=== PATIENT | female | born 1960 | race Caucasian/White ===

== ENCOUNTER 2017-02-14 22:57 | Observation (INO) ==
[2017-02-14] MEDS ORDERED: Metoclopramide 10 MG/2 ML VIAL IVP ONE (23:06)
--- NOTE | 2017-02-14 23:08 | Emergency Department Note ---
Disposition Clinical Impression: Hypoxia, Elevated d-dimer, ADALBERTO (acute kidney injury) Headache Qualifiers: Headache type: unspecified Headache chronicity pattern: acute headache Intractability: not intractable Qualified Code(s): R51 - Headache Disposition: Admitted As Inpatient Condition: Good Instructions: Acute Headache (ED) Referrals: NO,PCP [Non-Partnered Physician] - Forms: ED Satisfaction Letter Time of Disposition: 02:25 Headache HPI - General Chief Complaint: ED Headache Stated Complaint: headache Time Seen by Provider: 02/14/17 23:03 Source: patient Mode of arrival: ambulatory Limitations: no limitations Nursing Notes Reviewed: Yes Vital Signs Reviewed: Yes - History of Present Illness HPI Narrative: Patient is a 56-year-old female with hypertension, diabetes, hypothyroid. She presents today due to headache. Patient states that she was seen at the [facility] urgent care today and had an injection of Toradol and injection of steroids for right carpal tunnel. This evening, around 9 PM approximately 2 hours prior to arrival, patient began having a frontal headache, it was sudden in onset, she also had some vertigo. She is still having vertigo and frontal headache, denies any numbness, tingling, weakness. Denies any chest pain, shortness breath, nausea, vomiting, fevers, diarrhea. Denies any history of headaches. - Related Data Home Medications Medication Instructions Recorded Confirmed Clonazepam 09/26/16 Gabapentin 09/26/16 HumuLIN N 09/26/16 Lisinopril 09/26/16 Metformin 09/26/16 Synthroid 09/26/16 09/26/16 Previous Rx's Medication Instructions Recorded Diclofenac Potassium 50 mg PO TID PRN #20 tablet 09/26/16 Fluticasone Propionate Nasal 50 mcg NS DAILY #1 bottle 01/12/17 [Flonase] Insulin Glargine [Lantus] 15 unit SQ HS 30 Days 01/12/17 Insulin LISPRO [HumaLOG] 10 units SQ TIDWM #90 vial 01/12/17 Azithromycin [Zithromax] 1 applic PO DAILY #6 tablet 02/03/17 Benzonatate [Tessalon] 200 mg PO TID PRN #30 capsule 02/03/17 Allergies Allergy/AdvReac Type Severity Reaction Status Date / Time ampicillin Allergy See Verified 11/01/16 15:23 Comments Erythromycin Base Allergy Hives Verified 11/01/16 15:23 [From Erythrocin] Penicillins [PCN] Allergy See Verified 11/01/16 15:23 Comments Tetracycline Allergy Hives Verified 11/01/16 15:23 All systems ED: reviewed and negative except as stated. Constitutional: Denies: fever Eyes: Denies: vision change Cardiovascular: Denies: chest pain, palpitations Respiratory: Denies: cough, dyspnea, wheezes Gastrointestinal: Denies: abdominal pain, nausea, vomiting, diarrhea Genitourinary: Denies: urgency Integumentary: Denies: rash Neurological: Reports: headache, vertigo. Denies: weakness, numbness, paresthesias Headache PMH - Past Medical History Medical history: Reports: diabetes, hypertension, thyroid disease Psychiatric history: Reports: no psych history - Social History Smoking Status: Current every day smoker Alcohol use: Reports: unknown Drug use: Reports: none Physical Exam - General Limitations: no limitations General appearance: alert, in no apparent distress - Head Head exam: atraumatic, normocephalic, normal inspection - Eye Eye exam: Present: normal appearance, PERRL, EOMI - ENT ENT exam: normal exam, normal oropharynx, mucous membranes moist - Neck Neck exam: Present: normal inspection, full ROM, trachea midline. Absent: tenderness - Respiratory Respiratory exam: Present: normal lung sounds bilaterally - Cardiovascular Cardiovascular exam: Present: regular rate, normal rhythm, normal heart sounds - Abdominal Exam Abdominal exam: Present: soft, Non-Tender. Absent: tenderness, distention, guarding, rebound, rigidity - Extremities Exam Extremities exam: Present: normal inspection, full ROM. Absent: tenderness, pedal edema - Neurological Exam Neurological exam: Present: alert, oriented X3, CN II-XII intact. Absent: motor sensory deficit - Psychiatric Psychiatric exam: Present: normal affect, normal mood - Skin Skin exam: Present: warm, dry, intact, normal color Course Course Narrative: Vitals within normal limits. Physical exam showed no focal neurologic deficits. No neck tenderness or meningeal signs. The rest of the physical exam is benign. CT of the head showed no acute intracranial process and pansinusitis. Patient was given Reglan and meclizine for vertigo and nausea. Patient was concerned today that maybe she had an allergic reaction to Toradol. She has no lip swelling, throat swelling, shortness of breath or difficulty swallowing. 00:36 patient is only 91% on 2L NC. Will obtain CXR, EKG, trop, d-dimer, BMP for further assessment. Mild dyspnea but no chest pain at this time. 02:22 . Patient chest x-ray was negative for any acute process. Troponin negative. D-dimer was elevated. BMP showed elevated creatinine and a GFR of 46. Due to poor GFR, CTA cannot be completed. A V/Q scan cannot be obtained at this time, I discussed starting a heparin drip with the patient and then admitting her and having a VQ scan done in the morning due to concern of possible PE. She was agreeable with this plan. Head CT 02/14/17 23:04 IMPRESSION: No acute intracranial abnormality. Pansinusitis. D/ / Arabella Laguna MD / Arabella Laguna MD Interpreting Provider: Araeblla Laguna MD Chest X-Ray 02/15/17 00:31 IMPRESSION: No acute process. D/ / Sebastián Avitia MD / Sebastián Avitia MD Interpreting Provider: Sebastián Avitia MD Head CT 02/14/17 23:04 IMPRESSION: No acute intracranial abnormality. Pansinusitis. D/ / Arabella Laguna MD / Arabella Laguna MD Interpreting Provider: Arabella Laguna MD Vital Signs Temperature 98.0 F 02/14/17 23:02 Pulse Rate 88 02/14/17 23:02 Respiratory Rate 16 02/14/17 23:02 Blood Pressure 127/82 02/14/17 23:02 O2 Sat by Pulse Oximetry 96 02/14/17 23:02 Temperature 98.0 F 02/14/17 23:02 Pulse Rate 87 02/15/17 00:04 Respiratory Rate 18 02/15/17 00:04 Blood Pressure 136/81 02/15/17 00:04 O2 Sat by Pulse Oximetry 96 02/15/17 00:07 Oxygen Delivery Oxygen Delivery Room Air Headache - MDM Narrative Medical decision making narrative: Vitals within normal limits. Physical exam showed no focal neurologic deficits. No neck tenderness or meningeal signs. The rest of the physical exam is benign. CT of the head showed no acute intracranial process and pansinusitis. Patient was given Reglan and meclizine for vertigo and nausea. Patient was concerned today that maybe she had an allergic reaction to Toradol. She has no lip swelling, throat swelling, shortness of breath or difficulty swallowing. 00:36 patient is only 91% on 2L NC. Will obtain CXR, EKG, trop, d-dimer, BMP for further assessment. Mild dyspnea but no chest pain at this time. 02:22 . Patient chest x-ray was negative for any acute process. Troponin negative. D-dimer was elevated. BMP showed elevated creatinine and a GFR of 46. Due to poor GFR, CTA cannot be completed. A V/Q scan cannot be obtained at this time, I discussed starting a heparin drip with the patient and then admitting her and having a VQ scan done in the morning due to concern of possible PE. She was agreeable with this plan. - Medical Records Medical records reviewed: Yes I reviewed the patient's medical records. - Lab Data Lab results reviewed: Yes I reviewed the patient's lab results. Result diagrams: 02/15/17 00:57 Lab Results 02/15/17 02/15/17 02/15/17 Range/Units 00:57 00:57 00:57 D-Dimer 680 H (0-500) ng/mLFEU Sodium 136 (136-145) mEq/L Potassium 4.8 H (3.5-4.5) mEq/L Chloride 102 (98-109) mEq/L Carbon Dioxide 24 (19-29) mEq/L BUN 21 H (7-20) mg/dL Creatinine 1.22 H (0.57-1.11) mg/dL Est GFR ( Amer) 56 L (> 60) Est GFR (Non-Af Amer) 46 L (> 60) BUN/Creatinine Ratio 17 (6-26) Glucose 348 H (70-99) mg/dL Calculated Osmolality 299 (280-300) Calcium 10.2 (8.6-10.8) mg/dL Troponin I 0.01 (0-0.03) ng/mL - Radiology Data Radiology results reviewed: Yes I reviewed the patient's radiology results. Head CT 02/14/17 23:04 IMPRESSION: No acute intracranial abnormality. Pansinusitis. D/ / Arabella Laguna MD / Arabella Laguna MD Interpreting Provider: Arabella Laguna MD - EKG Data EKG attestation: Yes I reviewed and interpreted this EKG. EKG results narrative: 02/15/2017 at 00:51. Normal sinus rhythm. Rate 90. GA 187. QRS 82. QTC 399. Normal axis. No acute ST elevation or depression. T-wave inversion in lead 3 that is chronic for the patient from previous EKG on 01/12/2017 [facility] [place] Situation: Demographics, MOA Background: Presenting Complaint, Relevant PMH, Meds, & Allergies Assessment: Vital Signs, Course and respsone to treatment, Exam Concerns, Patient/Family Expectation, Pertinant Lab Results, Outstanding Labs Recommendation: Barrier(s) to disposition, Recommendation based on pending studies, treatments, or consults [facility] Report Given to: Dr. Beatriz Jacob Repor Time: 02:25 Attestation Statement - Attestation Attestation: I examined this patient and my medical decision-making was reviewed with the LUMBER SORTER/PA/Advanced Practice Nurse/Resident Physician. I agree with the documented findings, disposition and treatment plan as described except to the extent set forth below. Patient to the emergency department with a chief complaint of headache. Sudden onset. Patient states this started after she was at the urgent care for her carpal tunnel and got an injection of Toradol and a steroid. On examination she does not appear to be in any distress. Neurologically intact. No nystagmus. Plan. Patient is to use some feeling of off balance. We will give her some meclizine. Reglan Benadryl. Reevaluate. Head CT as well. CT unremarkable patient feeling better. She is persistently hypoxic. She had a cardiac workup with a positive d-dimer. Acute renal insufficiency secondary to CT scan. We will start on Heparin and admit for VQ.
[2017-02-15 01:17] LABS: Calcium 10.2 mg/dL (8.6-10.8); Potassium 4.8 mEq/L (3.5-4.5)
[2017-02-15] MEDS ORDERED: *HR* Heparin 5,000 UNIT/ML VIAL IVP ONE (02:16)
[2017-02-15] MEDS ORDERED: *HR* Heparin 5,000 UNIT/ML VIAL IVP PRN ×2 (02:16)
[2017-02-15] MEDS ORDERED: Heparin 25,000 UNIT/500 ML D5W 25,000 UNIT/500 ML MLS IVC SCH (02:30)
[2017-02-15] MEDS ORDERED: Acetaminophen 325 MG TABLET PO PRN (02:40)
[2017-02-15] MEDS ORDERED: *HR* Morphine 2 MG/ML SYRINGE IVP PRN (02:40)
[2017-02-15] MEDS ORDERED: Ondansetron 4 MG/2 ML VIAL IVP PRN (02:40)
[2017-02-15] MEDS ORDERED: Naloxone 0.4 MG/ML INJ IVP PRN (02:40)
[2017-02-15] MEDS ORDERED: Ipratropium/Albuterol Neb 3 ML IH PRN (02:42)
[2017-02-15] MEDS ORDERED: 0.9 % Sodium Chloride 1,000 ML IVC SCH (02:45)
--- NOTE | 2017-02-15 02:46 | Internal Med History&Physical ---
Date of Encounter: 02/15/17 Time of Encounter: 02:43 Assessment and Plan (1) Hypoxia Current visit: Yes Status: Acute With elevated d-dimer and tachycardia, consider possible pulmonary emboli Ordered a VQ scan, may discontinue heparin drip if the VQ scan is negative for pulmonary emboli Omeprazole for GI prophylaxis and heparin drip for DVT for prophylaxis. Admitted for observation. Full code. Time spent on this admission 40 minutes. High risk due to hypoxia (2) Elevated d-dimer Current visit: Yes Status: Acute (3) Hypertension Current visit: Yes Status: Acute Stable May use hydralazine IV as needed Qualifiers: Hypertension type: essential hypertension Qualified Code(s): I10 - Essential (primary) hypertension (4) ADALBERTO (acute kidney injury) Current visit: Yes Status: Acute Acute renal failure, possible dehydration Continue IV fluids (5) Headache Current visit: Yes Status: Acute Possibly secondary to pansinusitis likely viral Qualifiers: Headache type: unspecified Headache chronicity pattern: acute headache Intractability: not intractable Qualified Code(s): R51 - Headache (6) Diabetes Current visit: Yes Status: Acute Continue with insulin sliding scale Qualifiers: Diabetes mellitus type: type 2 Diabetes mellitus complication status: without complication Diabetes mellitus joint terminal attack controller insulin use: with joint terminal attack controller use Qualified Code(s): E11.9 - Type 2 diabetes mellitus without complications ; Z79.4 - nursing home (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 of insulin Internal Medicine - H&P: HPI Chief complaint: headache Admitted From: Emergency Dept History of present illness: Ms. Mahoney is a 56 year old female with a past medical history of DM2 insulin dep , Tobacco use who does not use oxygen at home, initially the patient came complaining of headache that started at 9 PM last night accompanied by vertigo. Yesterday patient went to an urgent care facility complaining of right carpal tunnel pain and received Toradol. At the emergency room she was noticed to be requiring oxygen on 3 L and saturating only 90%, she felt mildly short of breath. During my examination her heart rate was 101, her creatinine has increased from 0.87 up to 1.22, her d-dimer was [address] angiography of the chest was not able to be performed. The patient agreed to stay until the VQ scan would be ordered. CT scan of the head does not show any intracranial hemorrhage and shows pansinusitis. Chest x-ray is unremarkable. Glucose is 348. Denies any sick contacts or fevers Past Med Surg Social Fam HX - Past Medical History Medical history: diabetes (Insulin-dependent), hypertension, thyroid disease ( Hypothyroidism), other (Neuropathy, tobacco use, anxiety) Psychiatric history: no psych history - Past Surgical History Surgical History: other (C-sections, tubal pregnancies, hysterectomy and possible appendectomy, and past the patient was told that they took her appendix out during her hysterectomy) - Social History Smoking Status: Current every day smoker Packs per day: One pack per day Smokeless Tobacco Status: No Alcohol use: none Drug use: none - Additional Family History Additional family history: Mother and father with diabetes Internal Medicine - H&P: Meds Clonazepam 09/26/16 [History] Diclofenac Potassium 50 mg PO TID PRN #20 tablet 09/26/16 [Rx] Gabapentin 09/26/16 [History] HumuLIN N 09/26/16 [History] Lisinopril 09/26/16 [History] Metformin 09/26/16 [History] Synthroid 09/26/16 [History] Fluticasone Propionate Nasal [Flonase] 50 mcg NS DAILY #1 bottle 01/12/17 [Rx] Insulin Glargine [Lantus] 15 unit SQ HS 30 Days 01/12/17 [Rx] Insulin LISPRO [HumaLOG] 10 units SQ TIDWM #90 vial 01/12/17 [Rx] Azithromycin [Zithromax] 1 applic PO DAILY #6 tablet 02/03/17 [Rx] Benzonatate [Tessalon] 200 mg PO TID PRN #30 capsule 02/03/17 [Rx] Allergies ampicillin Allergy (Verified 11/01/16 15:23) See Comments Allergy test results Erythromycin Base [From Erythrocin] Allergy (Verified 11/01/16 15:23) Hives Penicillins [PCN] Allergy (Verified 11/01/16 15:23) See Comments Allergy test results Tetracycline Allergy (Verified 11/01/16 15:23) Hives All Systems PM: A 10-system review of systems was performed and is negative for pertinent findings except as documented above in the HPI. Review of systems: Denies any chest pain, no abdominal pain, no dysuria. Other systems out of the 10 reviewed were negative - Constitutional Vitals: Temp Pulse Resp BP Pulse Ox 98.0 F 87 18 136/81 96 02/14/17 23:02 02/15/17 00:04 02/15/17 00:04 02/15/17 00:04 02/15/17 00:07 General appearance: Present: A&O X 3 - Head Head exam: Present: atraumatic, normocephalic - Eye Eye exam: Present: PERRL, conjuntiva pink, sclera anicteric Pupils: Present: PERRL - Neck Neck exam general surgery: Present: supple, trachea midline. Absent: lymphadenopathy - Respiratory Respiratory exam: Present: decreased breath sounds, CTAB. Absent: accessory muscle use, rales, rhonchi, wheezes - Cardiovascular Cardiovascular exam: Present: RRR, +S1, +S2, tachycardia (101 bpm during my examination). Absent: diastolic murmur, gallop, rubs, systolic murmur - GI/Abdominal GI/Abdominal exam: Present: normal bowel sounds, soft, no peritoneal signs. Absent: distended, tenderness - Extremities Exam Extremities exam: Present: warm, radial pulses palpable and symetrical. Absent : calf tenderness, cyanotic, pedal edema - Neurological Exam Neurological exam: Present: CN II-XII intact, oriented X3, no focal deficits. Absent: pronater drift, facial droop, speech deficit - Skin Skin exam: Present: dry, intact Internal Med - H&P Results - Labs CBC & Chem 7: 02/15/17 00:57
[2017-02-15] MEDS ORDERED: Dextrose Gel 15 GM PO PRN ×2 (02:53)
[2017-02-15] MEDS ORDERED: *HR* Dextrose 50 % in Water (Syg) 50 ML SYRINGE IVP PRN (02:53)
[2017-02-15] MEDS ORDERED: D5% in Water 1,000 ML IVC PRN (02:53)
[2017-02-15] MEDS ORDERED: Insulin LISPRO 300 UNITS/3 ML VIAL SQ SCH (03:00)
[2017-02-15 03:01] LABS: Basophils % 0.2 %; Eosinophils % 0.2 %; Hematocrit 41.7 % (35.3-44.9); Hemoglobin 13.9 g/dL (11.5-15.4); Immature Granulocytes % 0.5 % (0-4); Lymphocytes # 0.3 K/mcL (0.6-4.6); Lymphocytes % 7.2 %; Mean Corpuscular HGB Conc 33.3 g/dL (31.6-35.5); Mean Corpuscular Hemoglobin 32.4 pg (28.0-33.3); Mean Corpuscular Volume 97.2 fL (83.0-100.0); Mean Platelet Volume 10.3 fL (9.4-12.4); Monocytes % 0.7 %; Neutrophils # 3.7 K/mcL (1.6-8.9); Platelet Count 155 K/mcL (140-400); Red Blood Count 4.29 M/mcL (3.82-4.97); Red Cell Distribution Width 12.7 % (11.5-14.5); Segmented Neutrophils % 91.2 %
[2017-02-15 03:15] LABS: INR 1.1; Prothrombin Time 11.4 Seconds (9.4-12.1)
[2017-02-15 03:17] LABS: Activated Partial Thrombo Time 32.5 Seconds (26.0-36.0)
[2017-02-15] MEDS: Insulin LISPRO 300 UNITS/3 ML VIAL SQ SCH ×3 (05:55→12:05)
[2017-02-15] MEDS ORDERED: Nicotine 21 MG PATCH.TD24 TD SCH (09:00)
[2017-02-15 10:02] LABS: Hematocrit 39.2 % (35.3-44.9); Immature Granulocytes % 0.7 % (0-4); Lymphocytes # 0.4 K/mcL (0.6-4.6); Lymphocytes % 7.5 %; Mean Corpuscular HGB Conc 33.2 g/dL (31.6-35.5); Mean Corpuscular Hemoglobin 31.3 pg (28.0-33.3); Mean Corpuscular Volume 94.5 fL (83.0-100.0); Mean Platelet Volume 10.2 fL (9.4-12.4); Monocytes # 0.1 K/mcL (0.0-1.3); Monocytes % 2.1 %; Neutrophils # 5.2 K/mcL (1.6-8.9); Platelet Count 150 K/mcL (140-400); Red Blood Count 4.15 M/mcL (3.82-4.97); Red Cell Distribution Width 12.3 % (11.5-14.5); Segmented Neutrophils % 89.7 %
[2017-02-15 10:21] LABS: BUN/Creatinine Ratio 24 (6-26); Blood Urea Nitrogen 25 mg/dL (7-20); Calcium 9.8 mg/dL (8.6-10.8); Carbon Dioxide 24 mEq/L (19-29); Chloride 104 mEq/L (98-109); Glucose 304 mg/dL (70-99); Osmolality,Calculated 298 (280-300); Potassium 4.7 mEq/L (3.5-4.5); Sodium 136 mEq/L (136-145); eGFR For African Americans > 60 (> 60); eGFR For Non-African Americans 54 (> 60)
[2017-02-15 11:24] VITALS: BP 126/78
--- NOTE | 2017-02-15 14:43 | Discharge Summary ---
Date of Encounter: 02/15/17 Time of Encounter: 14:00 - Discharge Diagnosis (1) Headache Priority: Primary Status: Resolved Comments: Patient denied headache or vertigo throughout this admission. She had an outbreak and steady gait. Head CT negative. She is able to tolerate a regular diet. Qualifiers: Headache type: unspecified Headache chronicity pattern: acute headache Intractability: not intractable Qualified Code(s): R51 - Headache (2) Acute pansinusitis Priority: Primary Status: Acute (3) Elevated d-dimer Priority: Primary Status: Ruled-out Comments: VQ scan low probability for PE (4) ADALBERTO (acute kidney injury) Priority: Primary Status: Resolved Comments: Nearly resolved while admitted. Follow-up outpatient. (5) Diabetes Priority: Secondary Status: Chronic Comments: Relatively well controlled with an A1c of 7.4% in November of this year. Follow -up outpatient. Qualifiers: Diabetes mellitus type: type 2 Diabetes mellitus complication status: without complication Diabetes mellitus urology surgeon insulin use: with senior living use Qualified Code(s): E11.9 - Type 2 diabetes mellitus without complications ; Z79.4 - retirement (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 of insulin (6) Hypertension Priority: Secondary Status: Chronic Comments: Controlled. Her HEMANT inhibitor was held during this admission secondary to acute kidney injury, safe to resume upon discharge. Qualifiers: Hypertension type: essential hypertension Qualified Code(s): I10 - Essential (primary) hypertension - Discharge Medications Home Medications: Gabapentin [Neurontin] 600 mg PO TID 09/26/16 [History] Levothyroxine Sodium [Levo-T] 200 mcg PO DAILY 09/26/16 [History] Lisinopril [Zestril] 5 mg PO DAILY 09/26/16 [History] Metformin [Glucophage] 850 mg PO DAILY 09/26/16 [History] Insulin LISPRO [HumaLOG] 10 units SQ TIDWM #90 vial 01/12/17 [Rx] Atorvastatin [Lipitor] 40 mg PO HS 02/15/17 [History] Dulaglutide [Trulicity] 1.5 mg SQ QWEEK 02/15/17 [History] Famotidine [Heartburn Prevention] 20 mg PO HS 02/15/17 [History] Insulin Glargine,Hum.rec.anlog [Tracey Alas] 21 unit SQ HS 02/15/17 [History ] Ropinirole HCl [Requip] 0.5 mg PO HS 02/15/17 [History] Allergies/Adverse Reactions: Allergies ampicillin Allergy (Verified 11/01/16 15:23) See Comments Allergy test results Erythromycin Base [From Erythrocin] Allergy (Verified 11/01/16 15:23) Hives Penicillins [PCN] Allergy (Verified 11/01/16 15:23) See Comments Allergy test results Tetracycline Allergy (Verified 11/01/16 15:23) Hives Procedures/tests Complete & Pending: Procedures Performed prior 72 hours Category Date Time Status VQ Scan [NM pul vent and perfuse] [NM] Routine Exams 02/15/17 02:39 Completed Date of admission: 02/15/17 02:36 Primary care physician: Jagruti Romero DO Discharging clinician: Holli Ferreira Anticipated date of discharge: 02/15/17 - Patient Status Disposition: Home, Self-Care Condition: Good Functional capacity at discharge: independent ambulation Overall status at discharge: patient is back to baseline - Discharge Instructions Follow Up With: Jagruti Romero DO [Primary Care Provider] - Additional Instructions: Follow-up with primary care provider within 2-3 weeks - Diet and Activity Activity: increase activity as tolerated Diet: diabetic diet, low salt diet Hospital course: Ms. Mahoney is a 56 year old female with past medical history of diabetes, hypertension, hypothyroidism, tobacco abuse. Patient presented to the emergency department chief complaint headache that started on the night prior to presentation was accompanied by vertigo. Patient states she was seen in urgent care on the day prior to presentation can tell complaining of right carpal tunnel pain and received Toradol. While in the emergency department, she was noted to be requiring 3 L and was only saturating 90% and she also felt mildly short of breath. She does not use oxygen at home. Patient also had acute kidney injury and an elevated d-dimer. Patient was admitted to the hospitalist service for further evaluation and management. VQ scan ruled out a PE. Patient was asymptomatic throughout this admission and was able to tolerate a regular diet. Head CT negative for acute processes other than pansinusitis. Chest x-ray negative. Patient had an upright and steady gait throughout this admission and denied any vision changes. Her acute kidney injury nearly resolved and her HEMANT inhibitor was continued. Likely cause of her symptoms was dehydration which resolved. She was discharged home in stable condition with close outpatient follow-up recommended. ITS Impressions Head CT 02/14/17 23:04 IMPRESSION: No acute intracranial abnormality. Pansinusitis. D/ / Arabella Laguna MD / Arabella Laguna MD Interpreting Provider: Arabella Laguna MD Chest X-Ray 02/15/17 00:31 IMPRESSION: No acute process. D/ / Sebastián Avitia MD / Sebastián Avitia MD Interpreting Provider: Sebastián vAitia MD Pulmonary Perfusion Imaging 02/15/17 02:39 IMPRESSION: Low Probability for Pulmonary Embolus. D/ / 02/15/2017 13:04:27 Kwesi Arevalo MD / Shilpa Galo Interpreting Provider: Kwesi Arevalo MD - Time Spent with Patient Total time spent providing and/or coordinating discharge services: - Constitutional Vitals: Temp Pulse Resp BP Pulse Ox 97.7 F 73 20 126/78 94 02/15/17 11:19 02/15/17 11:19 02/15/17 11:19 02/15/17 11:19 02/15/17 11:19 General appearance: Present: A&O X 3, pleasant, no acute distress, answers questions appropriately - Head Head exam: Present: atraumatic, normocephalic - Eye Eye exam: Present: PERRL, conjuntiva pink, sclera anicteric Pupils: Present: PERRL - Neck Neck exam general surgery: Present: supple, trachea midline. Absent: lymphadenopathy - Respiratory Respiratory exam: Present: decreased breath sounds. Absent: accessory muscle use, rales, respiratory distress, rhonchi, wheezes - Cardiovascular Cardiovascular exam: Present: RRR, +S1, +S2. Absent: diastolic murmur, gallop, rubs, systolic murmur - GI/Abdominal GI/Abdominal exam: Present: normal bowel sounds, soft, no peritoneal signs. Absent: distended, tenderness - Extremities Exam Extremities exam: Present: warm, radial pulses palpable and symetrical. Absent : calf tenderness, cyanotic, pedal edema - Neurological Exam Neurological exam: Present: alert, CN II-XII intact, normal gait, oriented X3, no focal deficits, strengths equal and symetr throughout. Absent: pronater drift, facial droop, speech deficit - Skin Skin exam: Present: dry, intact, normal color, warm
--- NOTE | 2017-02-16 20:13 | Electrocardiograph Report ---
[place] [id number] Test Date: 2017-02-15 Pat Name: Lela Mahoney Department: 102 Room: 3B Gender: F Client Liaison: Roque : 1960 Requested By: Dakotah Mazariegos Order Number: [id number] Reading MD: Khai Ramirez MD Measurements Intervals [place] Rate: 90 P: 28 KS: 187 QRS: -1 QRSD: 82 T: 13 QT: 352 QTc: 399 Interpretive Statements SINUS RHYTHM LOW QRS VOLTAGE IN PRECORDIAL LEADS Poor R wave progression Electronically Signed On 02-16-2017 20:11:23 EDT by Khai Ramirez MD
== END 2017-02-15 16:10 | disposition home or self-care (01) ==
LOC: EMEROO 22:57 → 3BNU 22:57
PROVIDERS: ADMIT Internal Medicine; ATTEND Nurse Practitioner Family

== ENCOUNTER 2018-07-29 20:55 | Observation (INO) ==
[2018-07-29] MEDS: 0.9 % Sodium Chloride 1,000 ML IVC SCH ×2 (21:15→22:23)
--- NOTE | 2018-07-29 21:22 | Emergency Department Note ---
Disposition Clinical Impression: Status post chemotherapy, Brain metastases Hypotension Qualifiers: Hypotension type: unspecified hypotension type Qualified Code(s): I95.9 - Hypotension, unspecified Lung cancer Qualifiers: Laterality: unspecified laterality Lung location: unspecified part of lung Qualified Code(s): C34.90 - Malignant neoplasm of unspecified part of unspecified bronchus or lung Disposition: Admitted As Inpatient Condition: Undetermined General Adult HPI - General Chief complaint: ED Fever Stated complaint: Dizzy/ELMORE/fever Time Seen by Provider: 07/29/18 21:05 Source: patient Mode of arrival: private vehicle Limitations: no limitations Vital Signs Reviewed: Yes - History of Present Illness HPI Narrative: The patient is a 58 year old female with a history of stage 4 lung and brain cancer on chemotherapy that presents with headache, dizziness, and upper respiratory symptoms. Per patient's report, over the past 4 day she has started having dizziness, fever, and headaches at home as well congestion and cough. Patient's most recent chemotherapy was on , which was her second round of chemotherapy. Patient call heme/oncology and spoke to Dr. Boles and was instructed to take Decadron for her headache. Patient is scheduled for a MRI tomorrow. She denies any rash, chest pain, shortness of breath, abdominal pain, dysuria, hematuria, urinary urgency, constipation. Patient does admit to diarrhea, nausea, and vomiting, but states this is normal for her while being on chemotherapy and not any worse than what it typically is. - Related Data Home Medications Medication Instructions Recorded Confirmed Gabapentin [Neurontin] 600 mg PO TID 09/26/16 07/15/18 Lisinopril [Zestril] 5 mg PO DAILY 09/26/16 07/15/18 Atorvastatin [Lipitor] 40 mg PO HS 02/15/17 07/15/18 Ropinirole HCl [Requip] 0.5 - 1 mg PO HS 02/15/17 07/15/18 Famotidine [Heartburn Prevention] 20 mg PO HS 04/14/18 07/15/18 Omeprazole [PriLOSEC] 40 mg PO DAILY 04/14/18 07/15/18 Dulaglutide [Trulicity] 1.5 mg SQ QWEEK 05/17/18 07/15/18 Insulin LISPRO [HumaLOG] 10 - 12 units SQ TIDWM 05/17/18 07/15/18 Levothyroxine [Synthroid] 175 mcg PO 0630 05/17/18 07/15/18 Previous Rx's Medication Instructions Recorded Acetaminophen [Tylenol] 500 mg PO Q6HR PRN #20 tablet 01/13/18 Dexamethasone [Decadron] 4 mg PO BID 14 Days #28 tab 05/19/18 Dexamethasone [Decadron] 4 mg PO TID #90 tab 05/26/18 Polyethylene Glycol 3350 [MiraLAX] 17 gm PO BID #1 bottle 05/27/18 Sennosides [Senokot] 2 tab PO BID #120 tablet 05/27/18 Promethazine [Phenergan] 25 mg PO Q6HR PRN #30 tablet 06/15/18 Insulin Glargine,Hum.rec.anlog 30 units SQ HS #5 insuln.pen 06/24/18 [Tracey Alas] Ondansetron [Zofran] 8 mg PO Q8HR PRN #30 tablet 06/24/18 Oxycodone HCl 5 mg PO Q6H PRN 30 Days #120 tablet 07/02/18 Oxycodone HCl [Oxycontin] 20 mg PO BID 30 Days #60 tab.er.12h 07/02/18 Azithromycin [Azithromycin 6-Tab 250 mg PO PER PKG DI #6 tab 07/06/18 Pack] Loratadine [Claritin] 10 mg PO DAILY #7 tablet 07/06/18 Sertraline [Zoloft] 75 mg PO DAILY #45 tablet 07/09/18 Sertraline [Zoloft] 100 mg PO DAILY #30 tablet 07/09/18 Loratadine [Allergy Relief] 10 mg PO AD PRN #10 tablet 07/15/18 Polyethylene Glycol 3350 [MiraLAX] 17 gm PO DAILY #1 bottle 07/15/18 Allergies Allergy/AdvReac Type Severity Reaction Status Date / Time ampicillin Allergy Difficulty Verified 07/06/18 11:21 Breathing Erythromycin Base Allergy Hives Verified 07/06/18 11:21 [From Erythrocin] Penicillins [PCN] Allergy Difficulty Verified 07/06/18 11:21 Breathing Tetracycline Allergy Hives Verified 07/06/18 11:21 ketorolac [From Toradol] AdvReac Migraine Verified 07/06/18 11:21 Constitutional: Denies: fever, chills Eyes: Denies: eye pain, vision change ENT ED: Reports: congestion. Denies: ear pain, throat pain Cardiovascular: Denies: chest pain, palpitations, edema Respiratory: Reports: cough. Denies: dyspnea, wheezes Gastrointestinal: Reports: nausea, vomiting, diarrhea. Denies: abdominal pain, hematemesis, melena, hematochezia Genitourinary: Denies: urgency, dysuria, frequency, hematuria Musculoskeletal: Reports: neck pain. Denies: back pain Integumentary: Denies: rash, lesions Neurological: Reports: headache. Denies: weakness, numbness, paresthesias Past Medical History - Past Medical History Medical history: Reports: cancer, diabetes, hypertension, seizures, other Surgical history: Reports: , cataract, hysterectomy, GABRIELA/BSO, other Psychiatric history: Reports: anxiety, depression CONTACT CLERK history: Reports: no CONTACT CLERK history - Social History Smoking Status: Current every day smoker Smokeless Tobacco Status: No Alcohol use: Reports: none Drug use: Reports: none Physical Exam - General Limitations: no limitations General appearance: alert, in no apparent distress - Head Head exam: atraumatic, normocephalic - Eye Eye exam: Present: normal appearance. Absent: scleral icterus, conjunctival injection - ENT ENT exam: mucous membranes moist, normal external ear exam - Neck Neck exam: Present: normal inspection, full ROM, trachea midline. Absent: meningismus - Chest Chest inspection: Present: normal inspection, symmetric chest wall rise - Respiratory Respiratory exam: Present: normal lung sounds bilaterally. Absent: respiratory distress, wheezes - Cardiovascular Cardiovascular exam: Present: regular rate, normal rhythm, normal heart sounds. Absent: systolic murmur, diastolic murmur, rubs, gallop - Abdominal Exam Abdominal exam: Present: soft, Non-Tender, normal bowel sounds. Absent: distention, guarding, rebound, rigidity - Extremities Exam Extremities exam: Present: normal inspection, full ROM - Neurological Exam Neurological exam: Present: alert, oriented X3 - Psychiatric Psychiatric exam: Present: normal affect, normal mood - Skin Skin exam: Present: warm, dry, intact. Absent: rash Course Course Narrative: Patient is a 58 year old female that presents with upper respiratory like symptoms, headache in a patient with a history of stage 4 lung and brain cancer on chemotherapy. Septic workup was started. Patient is hypotensive in the ED, IV fluids were ordered. Heme/oncology will be consulted Vital Signs Temperature 98.1 F 07/29/18 20:58 Pulse Rate 94 07/29/18 20:58 Respiratory Rate 12 07/29/18 20:58 Blood Pressure 82/54 07/29/18 20:58 O2 Sat by Pulse Oximetry 98 07/29/18 20:58 Temperature 97.7 F 07/30/18 03:15 Pulse Rate 84 07/30/18 03:15 Respiratory Rate 16 07/30/18 03:15 Blood Pressure 103/66 07/30/18 03:15 O2 Sat by Pulse Oximetry 95 07/30/18 03:15 Oxygen Delivery Oxygen Delivery Room Air Medical Decision Making - MDM Narrative Medical decision making narrative: Patient's workup in the emergency department demonstrates findings concerning for hypotension. The patient is currently receiving chemotherapy for stage IV brain and lung cancer. The patient's lactic acid, chest x-ray, white blood cell count are all within normal limits. The patient's urinalysis demonstrates no signs of infection. Lactic acid is within normal limits. Blood cultures were obtained. Due to no evidence of an infectioous process at this time the patient was not started on any antibiotics at this time. The patient's absolute neutrophil count is over 7000 and is not neutropenic. The patient will be admitted to the hospital at this time given the concern for the patient' s hypotension which is fluid responsive. The patient received 2 L of IV fluids in the emergency department. She was also given her Requip for her restless leg syndrome. Patient denies any other complaints and agrees to plan of care. Patient's head CT demonstrates no acute process. The patient was accepted by Dr. Fields. - Lab Data Result diagrams: 07/29/18 21:29 07/29/18 21:29 Lab Results 07/29/18 07/29/18 07/29/18 Range/Units 21:29 21:29 21:29 WBC 7.8 (4.3-11.1) K/mcL RBC 3.22 L (3.82-4.97) M/mcL Hgb 11.2 L (11.5-15.4) g/dL Hct 32.4 L (35.3-44.9) % MCV 100.6 H (83.0-100.0) fL MCH 34.8 H (28.0-33.3) pg MCHC 34.6 (31.6-35.5) g/dL RDW 13.8 (11.5-14.5) % Plt Count 66 L (140-400) K/mcL MPV 11.2 (9.4-12.4) fL Immature Gran % 22.6 H (0-4) % Seg Neutrophils % 67.2 % Lymphocytes % 5.6 % Monocytes % 4.3 % Eosinophils % 0.0 % Basophils % 0.3 % Neutrophils # 5.2 (1.6-8.9) K/mcL Lymphocytes # 0.4 L (0.6-4.6) K/mcL Monocytes # 0.3 (0.0-1.3) K/mcL Eosinophils # 0.0 (0.0-0.6) K/mcL Basophils # 0.0 (0.0-0.2) K/mcL Nucleated RBCs/100 WBC 0.5 H (0) /100 WBC Reactive Lymphocytes Present A (Not Present) Toxic Granulation Present A (Not Present) Platelet Estimate Decreased L (Normal) Immature Plt Fraction 10.4 H (1.1-6.1) % PT 12.2 H (9.4-12.1) Seconds INR 1.1 APTT 31.9 (26.0-36.0) Seconds Sodium 135 L (136-145) mEq/L Potassium 3.8 (3.5-5.1) mEq/L Chloride 99 (98-107) mEq/L Carbon Dioxide 23 (23-29) mEq/L BUN 8 (6-20) mg/dL Creatinine 1.14 (0.60-1.20) mg/dL Est GFR ( Amer) 60 (> 60) Est GFR (Non-Af Amer) 49 L (> 60) BUN/Creatinine Ratio 7 (6-26) Glucose 201 H (70-105) mg/dL Calculated Osmolality 284 (280-300) Lactic Acid (0.5-2.2) mmol/L Calcium 10.2 (8.6-10.3) mg/dL Magnesium 1.5 L (1.6-2.6) mg/dL Total Bilirubin 0.6 (0.3-1.0) mg/dL Direct Bilirubin 0.2 (0.0-0.2) mg/dL Indirect Bilirubin 0.4 (0.0-1.2) mg/dL AST 15 (13-39) Units/L ALT 14 (7-52) Units/L Alkaline Phosphatase 88 (34-104) Units/L Troponin I < 0.03 (< 0.04) ng/mL Serum Total Protein 7.2 (6.4-8.9) g/dL Albumin 4.5 (3.5-5.7) g/dL Globulin 2.7 (2.4-3.5) g/dL Albumin/Globulin Ratio 1.7 (1.1-2.2) Urine Color (Yellow) Urine Clarity (Clear) Urine pH (5.0-8.0) pH Units Ur Specific [place] (1.010-1.025) Urine Protein (Neg-Trace) mg/dL Urine Glucose (UA) (Normal) mg/dL Urine Ketones (Negative) mg/dL Urine Blood (Negative) Urine Nitrite (Negative) Urine Bilirubin (Negative) Urine Urobilinogen (Normal) mg/dL Ur Leukocyte Esterase (Negative) Urine Microscopic RBC (0-3) per hpf Urine Microscopic WBC (0-3) per hpf Ur Squamous Epith Cells (None-Few) per lpf Urine Bacteria (None-Few) per hpf Hyaline Casts (None-Few) per lpf Ur Culture Indicated? (NO) 07/29/18 07/29/18 Range/Units 21:29 22:54 WBC (4.3-11.1) K/mcL RBC (3.82-4.97) M/mcL Hgb (11.5-15.4) g/dL Hct (35.3-44.9) % MCV (83.0-100.0) fL MCH (28.0-33.3) pg MCHC (31.6-35.5) g/dL RDW (11.5-14.5) % Plt Count (140-400) K/mcL MPV (9.4-12.4) fL Immature Gran % (0-4) % Seg Neutrophils % % Lymphocytes % % Monocytes % % Eosinophils % % Basophils % % Neutrophils # (1.6-8.9) K/mcL Lymphocytes # (0.6-4.6) K/mcL Monocytes # (0.0-1.3) K/mcL Eosinophils # (0.0-0.6) K/mcL Basophils # (0.0-0.2) K/mcL Nucleated RBCs/100 WBC (0) /100 WBC Reactive Lymphocytes (Not Present) Toxic Granulation (Not Present) Platelet Estimate (Normal) Immature Plt Fraction (1.1-6.1) % PT (9.4-12.1) Seconds INR APTT (26.0-36.0) Seconds Sodium (136-145) mEq/L Potassium (3.5-5.1) mEq/L Chloride (98-107) mEq/L Carbon Dioxide (23-29) mEq/L BUN (6-20) mg/dL Creatinine (0.60-1.20) mg/dL Est GFR ( Amer) (> 60) Est GFR (Non-Af Amer) (> 60) BUN/Creatinine Ratio (6-26) Glucose (70-105) mg/dL Calculated Osmolality (280-300) Lactic Acid 1.4 (0.5-2.2) mmol/L Calcium (8.6-10.3) mg/dL Magnesium (1.6-2.6) mg/dL Total Bilirubin (0.3-1.0) mg/dL Direct Bilirubin (0.0-0.2) mg/dL Indirect Bilirubin (0.0-1.2) mg/dL AST (13-39) Units/L ALT (7-52) Units/L Alkaline Phosphatase (34-104) Units/L Troponin I (< 0.04) ng/mL Serum Total Protein (6.4-8.9) g/dL Albumin (3.5-5.7) g/dL Globulin (2.4-3.5) g/dL Albumin/Globulin Ratio (1.1-2.2) Urine Color Dark Yellow (Yellow) Urine Clarity Clear (Clear) Urine pH 5.5 (5.0-8.0) pH Units Ur Specific [place] 1.014 (1.010-1.025) Urine Protein Negative (Neg-Trace) mg/dL Urine Glucose (UA) Normal (Normal) mg/dL Urine Ketones Trace H (Negative) mg/dL Urine Blood Negative (Negative) Urine Nitrite Negative (Negative) Urine Bilirubin Small H (Negative) Urine Urobilinogen Normal (Normal) mg/dL Ur Leukocyte Esterase Negative (Negative) Urine Microscopic RBC 3-5 H (0-3) per hpf Urine Microscopic WBC 3-5 H (0-3) per hpf Ur Squamous Epith Cells Many H (None-Few) per lpf Urine Bacteria None Seen (None-Few) per hpf Hyaline Casts Many H (None-Few) per lpf Ur Culture Indicated? NO (NO)
--- NOTE | 2018-07-29 21:29 | Emergency Department Note ---
Disposition Clinical Impression: Status post chemotherapy, Brain metastases Hypotension Qualifiers: Hypotension type: unspecified hypotension type Qualified Code(s): I95.9 - Hypotension, unspecified Lung cancer Qualifiers: Laterality: unspecified laterality Lung location: unspecified part of lung Qualified Code(s): C34.90 - Malignant neoplasm of unspecified part of unspecified bronchus or lung Disposition: Admitted As Inpatient Condition: Undetermined General Adult HPI - General Chief complaint: ED Fever Stated complaint: Dizzy/ELMORE/fever Time Seen by Provider: 07/29/18 21:05 Source: patient Mode of arrival: private vehicle Limitations: no limitations - Related Data Home Medications Medication Instructions Recorded Confirmed Gabapentin [Neurontin] 600 mg PO TID 09/26/16 07/15/18 Lisinopril [Zestril] 5 mg PO DAILY 09/26/16 07/15/18 Atorvastatin [Lipitor] 40 mg PO HS 02/15/17 07/15/18 Ropinirole HCl [Requip] 0.5 - 1 mg PO HS 02/15/17 07/15/18 Famotidine [Heartburn Prevention] 20 mg PO HS 04/14/18 07/15/18 Omeprazole [PriLOSEC] 40 mg PO DAILY 04/14/18 07/15/18 Dulaglutide [Trulicity] 1.5 mg SQ QWEEK 05/17/18 07/15/18 Insulin LISPRO [HumaLOG] 10 - 12 units SQ TIDWM 05/17/18 07/15/18 Levothyroxine [Synthroid] 175 mcg PO 0630 05/17/18 07/15/18 Previous Rx's Medication Instructions Recorded Acetaminophen [Tylenol] 500 mg PO Q6HR PRN #20 tablet 01/13/18 Dexamethasone [Decadron] 4 mg PO BID 14 Days #28 tab 05/19/18 Dexamethasone [Decadron] 4 mg PO TID #90 tab 05/26/18 Polyethylene Glycol 3350 [MiraLAX] 17 gm PO BID #1 bottle 05/27/18 Sennosides [Senokot] 2 tab PO BID #120 tablet 05/27/18 Promethazine [Phenergan] 25 mg PO Q6HR PRN #30 tablet 06/15/18 Insulin Glargine,Hum.rec.anlog 30 units SQ HS #5 insuln.pen 06/24/18 [Tracey Alas] Ondansetron [Zofran] 8 mg PO Q8HR PRN #30 tablet 06/24/18 Oxycodone HCl 5 mg PO Q6H PRN 30 Days #120 tablet 07/02/18 Oxycodone HCl [Oxycontin] 20 mg PO BID 30 Days #60 tab.er.12h 07/02/18 Azithromycin [Azithromycin 6-Tab 250 mg PO PER PKG DI #6 tab 07/06/18 Pack] Loratadine [Claritin] 10 mg PO DAILY #7 tablet 07/06/18 Sertraline [Zoloft] 75 mg PO DAILY #45 tablet 07/09/18 Sertraline [Zoloft] 100 mg PO DAILY #30 tablet 07/09/18 Loratadine [Allergy Relief] 10 mg PO AD PRN #10 tablet 07/15/18 Polyethylene Glycol 3350 [MiraLAX] 17 gm PO DAILY #1 bottle 07/15/18 Allergies Allergy/AdvReac Type Severity Reaction Status Date / Time ampicillin Allergy Difficulty Verified 07/06/18 11:21 Breathing Erythromycin Base Allergy Hives Verified 07/06/18 11:21 [From Erythrocin] Penicillins [PCN] Allergy Difficulty Verified 07/06/18 11:21 Breathing Tetracycline Allergy Hives Verified 07/06/18 11:21 ketorolac [From Toradol] AdvReac Migraine Verified 07/06/18 11:21 Constitutional: Reports: fever. Denies: chills Eyes: Denies: eye pain, vision change ENT ED: Reports: congestion. Denies: ear pain, throat pain Cardiovascular: Denies: chest pain, palpitations, edema Respiratory: Reports: cough. Denies: dyspnea, wheezes Gastrointestinal: Reports: nausea, vomiting, diarrhea. Denies: abdominal pain, hematemesis, melena, hematochezia Genitourinary: Denies: urgency, dysuria, frequency, hematuria Musculoskeletal: Reports: neck pain. Denies: back pain Integumentary: Denies: rash, lesions Neurological: Reports: headache. Denies: weakness, numbness, paresthesias Past Medical History - Past Medical History Medical history: Reports: cancer, diabetes, hypertension, seizures, other Surgical history: Reports: , cataract, hysterectomy, GABRIELA/BSO, other Psychiatric history: Reports: anxiety, depression CHIEF GUARD history: Reports: no CHIEF GUARD history - Social History Smoking Status: Current every day smoker Smokeless Tobacco Status: No Alcohol use: Reports: none Drug use: Reports: none Physical Exam - General Limitations: no limitations General appearance: alert, in no apparent distress Course Vital Signs Temperature 98.1 F 07/29/18 20:58 Pulse Rate 94 07/29/18 20:58 Respiratory Rate 12 07/29/18 20:58 Blood Pressure 82/54 07/29/18 20:58 O2 Sat by Pulse Oximetry 98 07/29/18 20:58 Temperature 98.1 F 07/29/18 22:35 Pulse Rate 82 07/29/18 23:30 Respiratory Rate 21 07/29/18 23:30 Blood Pressure 100/63 07/29/18 23:30 O2 Sat by Pulse Oximetry 94 07/29/18 23:30 Oxygen Delivery Oxygen Delivery Room Air Medical Decision Making - Lab Data Result diagrams: 07/29/18 21:29 07/29/18 21:29 Lab Results 07/29/18 07/29/18 07/29/18 Range/Units 21:29 21:29 21:29 WBC 7.8 (4.3-11.1) K/mcL RBC 3.22 L (3.82-4.97) M/mcL Hgb 11.2 L (11.5-15.4) g/dL Hct 32.4 L (35.3-44.9) % MCV 100.6 H (83.0-100.0) fL MCH 34.8 H (28.0-33.3) pg MCHC 34.6 (31.6-35.5) g/dL RDW 13.8 (11.5-14.5) % Plt Count 66 L (140-400) K/mcL MPV 11.2 (9.4-12.4) fL Immature Gran % 22.6 H (0-4) % Seg Neutrophils % 67.2 % Lymphocytes % 5.6 % Monocytes % 4.3 % Eosinophils % 0.0 % Basophils % 0.3 % Neutrophils # 5.2 (1.6-8.9) K/mcL Lymphocytes # 0.4 L (0.6-4.6) K/mcL Monocytes # 0.3 (0.0-1.3) K/mcL Eosinophils # 0.0 (0.0-0.6) K/mcL Basophils # 0.0 (0.0-0.2) K/mcL Nucleated RBCs/100 WBC 0.5 H (0) /100 WBC Reactive Lymphocytes Present A (Not Present) Toxic Granulation Present A (Not Present) Platelet Estimate Decreased L (Normal) Immature Plt Fraction 10.4 H (1.1-6.1) % PT 12.2 H (9.4-12.1) Seconds INR 1.1 APTT 31.9 (26.0-36.0) Seconds Sodium 135 L (136-145) mEq/L Potassium 3.8 (3.5-5.1) mEq/L Chloride 99 (98-107) mEq/L Carbon Dioxide 23 (23-29) mEq/L BUN 8 (6-20) mg/dL Creatinine 1.14 (0.60-1.20) mg/dL Est GFR ( Amer) 60 (> 60) Est GFR (Non-Af Amer) 49 L (> 60) BUN/Creatinine Ratio 7 (6-26) Glucose 201 H (70-105) mg/dL Calculated Osmolality 284 (280-300) Lactic Acid (0.5-2.2) mmol/L Calcium 10.2 (8.6-10.3) mg/dL Magnesium 1.5 L (1.6-2.6) mg/dL Total Bilirubin 0.6 (0.3-1.0) mg/dL Direct Bilirubin 0.2 (0.0-0.2) mg/dL Indirect Bilirubin 0.4 (0.0-1.2) mg/dL AST 15 (13-39) Units/L ALT 14 (7-52) Units/L Alkaline Phosphatase 88 (34-104) Units/L Troponin I < 0.03 (< 0.04) ng/mL Serum Total Protein 7.2 (6.4-8.9) g/dL Albumin 4.5 (3.5-5.7) g/dL Globulin 2.7 (2.4-3.5) g/dL Albumin/Globulin Ratio 1.7 (1.1-2.2) Urine Color (Yellow) Urine Clarity (Clear) Urine pH (5.0-8.0) pH Units Ur Specific [place] (1.010-1.025) Urine Protein (Neg-Trace) mg/dL Urine Glucose (UA) (Normal) mg/dL Urine Ketones (Negative) mg/dL Urine Blood (Negative) Urine Nitrite (Negative) Urine Bilirubin (Negative) Urine Urobilinogen (Normal) mg/dL Ur Leukocyte Esterase (Negative) Urine Microscopic RBC (0-3) per hpf Urine Microscopic WBC (0-3) per hpf Ur Squamous Epith Cells (None-Few) per lpf Urine Bacteria (None-Few) per hpf Hyaline Casts (None-Few) per lpf Ur Culture Indicated? (NO) 07/29/18 07/29/18 Range/Units 21:29 22:54 WBC (4.3-11.1) K/mcL RBC (3.82-4.97) M/mcL Hgb (11.5-15.4) g/dL Hct (35.3-44.9) % MCV (83.0-100.0) fL MCH (28.0-33.3) pg MCHC (31.6-35.5) g/dL RDW (11.5-14.5) % Plt Count (140-400) K/mcL MPV (9.4-12.4) fL Immature Gran % (0-4) % Seg Neutrophils % % Lymphocytes % % Monocytes % % Eosinophils % % Basophils % % Neutrophils # (1.6-8.9) K/mcL Lymphocytes # (0.6-4.6) K/mcL Monocytes # (0.0-1.3) K/mcL Eosinophils # (0.0-0.6) K/mcL Basophils # (0.0-0.2) K/mcL Nucleated RBCs/100 WBC (0) /100 WBC Reactive Lymphocytes (Not Present) Toxic Granulation (Not Present) Platelet Estimate (Normal) Immature Plt Fraction (1.1-6.1) % PT (9.4-12.1) Seconds INR APTT (26.0-36.0) Seconds Sodium (136-145) mEq/L Potassium (3.5-5.1) mEq/L Chloride (98-107) mEq/L Carbon Dioxide (23-29) mEq/L BUN (6-20) mg/dL Creatinine (0.60-1.20) mg/dL Est GFR ( Amer) (> 60) Est GFR (Non-Af Amer) (> 60) BUN/Creatinine Ratio (6-26) Glucose (70-105) mg/dL Calculated Osmolality (280-300) Lactic Acid 1.4 (0.5-2.2) mmol/L Calcium (8.6-10.3) mg/dL Magnesium (1.6-2.6) mg/dL Total Bilirubin (0.3-1.0) mg/dL Direct Bilirubin (0.0-0.2) mg/dL Indirect Bilirubin (0.0-1.2) mg/dL AST (13-39) Units/L ALT (7-52) Units/L Alkaline Phosphatase (34-104) Units/L Troponin I (< 0.04) ng/mL Serum Total Protein (6.4-8.9) g/dL Albumin (3.5-5.7) g/dL Globulin (2.4-3.5) g/dL Albumin/Globulin Ratio (1.1-2.2) Urine Color Dark Yellow (Yellow) Urine Clarity Clear (Clear) Urine pH 5.5 (5.0-8.0) pH Units Ur Specific [place] 1.014 (1.010-1.025) Urine Protein Negative (Neg-Trace) mg/dL Urine Glucose (UA) Normal (Normal) mg/dL Urine Ketones Trace H (Negative) mg/dL Urine Blood Negative (Negative) Urine Nitrite Negative (Negative) Urine Bilirubin Small H (Negative) Urine Urobilinogen Normal (Normal) mg/dL Ur Leukocyte Esterase Negative (Negative) Urine Microscopic RBC 3-5 H (0-3) per hpf Urine Microscopic WBC 3-5 H (0-3) per hpf Ur Squamous Epith Cells Many H (None-Few) per lpf Urine Bacteria None Seen (None-Few) per hpf Hyaline Casts Many H (None-Few) per lpf Ur Culture Indicated? NO (NO) Attestation Statement - Attestation Attestation: I examined this patient and my medical decision-making was reviewed with the Resident Physician. I agree with the documented findings, disposition and treatment plan as described except to the extent set forth below. Patient to ED with a fever. Headache. Upper respiratory symptoms. Patient is currently undergoing chemotherapy for metastatic lung cancer to the brain. Last chemotherapy was Friday. Patient is awake alert oriented moving all extremities on examination. She no meningismus. Full range of motion of her neck. Plan. Septic workup. Patient septic workup is unremarkable. No fever no white count. No source found. He is afebrile. Her blood pressures responded to fluid bolus. Patient has no meningismus. She is not felt to have meningitis. We will check CT head prior to admission. CT scan unremarkable for any new acute processes. Admitted to medicine. Chest X-Ray 07/29/18 21:13 IMPRESSION: 1. No acute cardiopulmonary disease. D/ / Hammad Escudero MD / Hammad Escudero MD Interpreting Provider: Hammad Escudero MD Head CT 07/29/18 23:18 IMPRESSION: On the current examination, no acute intracranial abnormalities detected. Those cerebellar masses seen previously are not well seen on the current examination, with no vasogenic edema identified within the cerebellum. D/ / Manuel Moscoso MD / Manuel Moscoso MD Interpreting Provider: Manuel Moscoso MD
--- NOTE | 2018-07-29 21:31 | Emergency Department Note ---
Disposition Clinical Impression: Brain metastases, Status post chemotherapy Lung cancer Qualifiers: Laterality: unspecified laterality Lung location: unspecified part of lung Qualified Code(s): C34.90 - Malignant neoplasm of unspecified part of unspecified bronchus or lung Hypotension Qualifiers: Hypotension type: unspecified hypotension type Qualified Code(s): I95.9 - Hypotension, unspecified Disposition: Admitted As Inpatient Condition: Undetermined Time of Disposition: 00:28 Fever HPI - General Chief Complaint: ED Fever Stated Complaint: Dizzy/ELMORE/fever Time Seen by Provider: 07/29/18 21:05 Source: patient Mode of arrival: private vehicle Limitations: no limitations Nursing Notes Reviewed: Yes Vital Signs Reviewed: Yes - History of Present Illness HPI Narrative: 58-year-old female with history of stage IV brain cancer and lung cancer arrives to the emergency department with complaint of fever, chills, headache and not feeling well. The patient is describing upper respiratory like symptoms. The patient is also is having 4 days of dizziness. The patient called heme on mortgage operations manager, Dr. Boles, who suggested the patient take her steroids and should come into the emergency department for evaluation. The patient states that she is just not feeling well. Upon arrival to the emergency department the patient was noted to be hypotensive with a systolic blood pressure of 82. The patient denies any abdominal pain, chest pain, difficulty breathing, diarrhea that is abnormal, melena, hematochezia. The patient states that she has had a mild cough. She denies any other complaints at this time. She is lucid and answering questions appropriately. - Related Data Home Medications Medication Instructions Recorded Confirmed Gabapentin [Neurontin] 600 mg PO TID 09/26/16 07/15/18 Lisinopril [Zestril] 5 mg PO DAILY 09/26/16 07/15/18 Atorvastatin [Lipitor] 40 mg PO HS 02/15/17 07/15/18 Ropinirole HCl [Requip] 0.5 - 1 mg PO HS 02/15/17 07/15/18 Famotidine [Heartburn Prevention] 20 mg PO HS 04/14/18 07/15/18 Omeprazole [PriLOSEC] 40 mg PO DAILY 04/14/18 07/15/18 Dulaglutide [Trulicity] 1.5 mg SQ QWEEK 05/17/18 07/15/18 Insulin LISPRO [HumaLOG] 10 - 12 units SQ TIDWM 05/17/18 07/15/18 Levothyroxine [Synthroid] 175 mcg PO 0630 05/17/18 07/15/18 Previous Rx's Medication Instructions Recorded Acetaminophen [Tylenol] 500 mg PO Q6HR PRN #20 tablet 01/13/18 Dexamethasone [Decadron] 4 mg PO BID 14 Days #28 tab 05/19/18 Dexamethasone [Decadron] 4 mg PO TID #90 tab 05/26/18 Polyethylene Glycol 3350 [MiraLAX] 17 gm PO BID #1 bottle 05/27/18 Sennosides [Senokot] 2 tab PO BID #120 tablet 05/27/18 Promethazine [Phenergan] 25 mg PO Q6HR PRN #30 tablet 06/15/18 Insulin Glargine,Hum.rec.anlog 30 units SQ HS #5 insuln.pen 06/24/18 [Tracey Alas] Ondansetron [Zofran] 8 mg PO Q8HR PRN #30 tablet 06/24/18 Oxycodone HCl 5 mg PO Q6H PRN 30 Days #120 tablet 07/02/18 Oxycodone HCl [Oxycontin] 20 mg PO BID 30 Days #60 tab.er.12h 07/02/18 Azithromycin [Azithromycin 6-Tab 250 mg PO PER PKG DI #6 tab 07/06/18 Pack] Loratadine [Claritin] 10 mg PO DAILY #7 tablet 07/06/18 Sertraline [Zoloft] 75 mg PO DAILY #45 tablet 07/09/18 Sertraline [Zoloft] 100 mg PO DAILY #30 tablet 07/09/18 Loratadine [Allergy Relief] 10 mg PO AD PRN #10 tablet 07/15/18 Polyethylene Glycol 3350 [MiraLAX] 17 gm PO DAILY #1 bottle 07/15/18 Allergies Allergy/AdvReac Type Severity Reaction Status Date / Time ampicillin Allergy Difficulty Verified 07/06/18 11:21 Breathing Erythromycin Base Allergy Hives Verified 07/06/18 11:21 [From Erythrocin] Penicillins [PCN] Allergy Difficulty Verified 07/06/18 11:21 Breathing Tetracycline Allergy Hives Verified 07/06/18 11:21 ketorolac [From Toradol] AdvReac Migraine Verified 07/06/18 11:21 All systems ED: reviewed and negative except as stated. Constitutional: Reports: fever. Denies: chills Eyes: Denies: eye pain, vision change ENT ED: Reports: congestion. Denies: ear pain, throat pain Cardiovascular: Denies: chest pain, palpitations, edema Respiratory: Reports: cough. Denies: dyspnea, wheezes Gastrointestinal: Reports: nausea, vomiting, diarrhea. Denies: abdominal pain, hematemesis, melena, hematochezia Genitourinary: Denies: urgency, dysuria, frequency, hematuria Musculoskeletal: Reports: neck pain. Denies: back pain Integumentary: Denies: rash, lesions Neurological: Reports: headache. Denies: weakness, numbness, paresthesias Fever PMH - Past Medical History Medical history: Reports: cancer, diabetes, hypertension, seizures, other Surgical history: Reports: , cataract, hysterectomy, GABRIELA/BSO, other Psychiatric history: Reports: anxiety, depression INSURANCE AGENCY MANAGER history: Reports: no INSURANCE AGENCY MANAGER history - Social History Smoking Status: Current every day smoker Alcohol use: Reports: none Drug use: Reports: none Physical Exam - General Limitations: no limitations General appearance: alert, in no apparent distress - Head Head exam: atraumatic, normocephalic, normal inspection - Eye Eye exam: Present: normal appearance, PERRL, EOMI - ENT ENT exam: normal exam, normal oropharynx, mucous membranes moist - Neck Neck exam: Present: normal inspection, full ROM, trachea midline - Chest Chest inspection: Present: normal inspection, symmetric chest wall rise - Respiratory Respiratory exam: Present: normal lung sounds bilaterally, wheezes (mild diffuse ) - Cardiovascular Cardiovascular exam: Present: regular rate, normal rhythm, normal heart sounds - Abdominal Exam Abdominal exam: Present: soft, Non-Tender. Absent: tenderness, distention, guarding, rebound, rigidity - Extremities Exam Extremities exam: Present: normal inspection, full ROM. Absent: tenderness, pedal edema - Neurological Exam Neurological exam: Present: alert, oriented X3 - Skin Skin exam: Present: warm, dry, intact, normal color Course Vital Signs Temperature 98.1 F 07/29/18 20:58 Pulse Rate 94 07/29/18 20:58 Respiratory Rate 12 07/29/18 20:58 Blood Pressure 82/54 07/29/18 20:58 O2 Sat by Pulse Oximetry 98 07/29/18 20:58 Temperature 98.1 F 07/29/18 22:35 Pulse Rate 82 07/29/18 23:30 Respiratory Rate 21 07/29/18 23:30 Blood Pressure 100/63 07/29/18 23:30 O2 Sat by Pulse Oximetry 94 07/29/18 23:30 Oxygen Delivery Oxygen Delivery Room Air Fever - MDM Narrative Medical decision making narrative: Patient's workup in the emergency department demonstrates findings concerning for hypotension. The patient is currently receiving chemotherapy for stage IV brain and lung cancer. The patient states that she has had no fevers but she has had some intermittent episodes of upper respiratory like symptoms. The patient's lactic acid, chest x-ray, white blood cell count are all within normal limits and well-appearing. The patient's urinalysis demonstrates no signs of infection. Lactic acid is within normal limits. Blood cultures were obtained. The patient was not started on any antibiotics at this time. The patient's absolute neutrophil count is over 7000. The patient is not neutropenic. The patient will be admitted to the hospital at this time given the concern for the patient's hypotension which is fluid responsive. The patient received 2 L of IV fluids in the emergency department. In addition the patient has been experiencing intermittent headaches where she was given Decadron earlier today for her headache. The patient is due to have an MRI tomorrow. This will be discussed with the admission hospitalist. A consultation will be made to [facility] but we will not call them at this time. The patient has no signs of bradycardia. We do not feel this is associated with increased intracranial pressure that is require surgical intervention at this time. The patient remains neurologically intact without any other complaints. Her pain is well-controlled with Reglan. She was also given her Requip for her restless leg syndrome. Patient denies any other complaints and agrees to plan of care. Patient's head CT dentures no acute process. The patient was accepted by Dr. Fields. - Lab Data Lab results reviewed: Yes I reviewed the patient's lab results. Result diagrams: 07/29/18 21:29 07/29/18 21:29 Lab Results 07/29/18 07/29/18 07/29/18 Range/Units 21:29 21:29 21:29 WBC 7.8 (4.3-11.1) K/mcL RBC 3.22 L (3.82-4.97) M/mcL Hgb 11.2 L (11.5-15.4) g/dL Hct 32.4 L (35.3-44.9) % MCV 100.6 H (83.0-100.0) fL MCH 34.8 H (28.0-33.3) pg MCHC 34.6 (31.6-35.5) g/dL RDW 13.8 (11.5-14.5) % Plt Count 66 L (140-400) K/mcL MPV 11.2 (9.4-12.4) fL Immature Gran % 22.6 H (0-4) % Seg Neutrophils % 67.2 % Lymphocytes % 5.6 % Monocytes % 4.3 % Eosinophils % 0.0 % Basophils % 0.3 % Neutrophils # 5.2 (1.6-8.9) K/mcL Lymphocytes # 0.4 L (0.6-4.6) K/mcL Monocytes # 0.3 (0.0-1.3) K/mcL Eosinophils # 0.0 (0.0-0.6) K/mcL Basophils # 0.0 (0.0-0.2) K/mcL Nucleated RBCs/100 WBC 0.5 H (0) /100 WBC Reactive Lymphocytes Present A (Not Present) Toxic Granulation Present A (Not Present) Platelet Estimate Decreased L (Normal) Immature Plt Fraction 10.4 H (1.1-6.1) % PT 12.2 H (9.4-12.1) Seconds INR 1.1 APTT 31.9 (26.0-36.0) Seconds Sodium 135 L (136-145) mEq/L Potassium 3.8 (3.5-5.1) mEq/L Chloride 99 (98-107) mEq/L Carbon Dioxide 23 (23-29) mEq/L BUN 8 (6-20) mg/dL Creatinine 1.14 (0.60-1.20) mg/dL Est GFR ( Amer) 60 (> 60) Est GFR (Non-Af Amer) 49 L (> 60) BUN/Creatinine Ratio 7 (6-26) Glucose 201 H (70-105) mg/dL Calculated Osmolality 284 (280-300) Lactic Acid (0.5-2.2) mmol/L Calcium 10.2 (8.6-10.3) mg/dL Magnesium 1.5 L (1.6-2.6) mg/dL Total Bilirubin 0.6 (0.3-1.0) mg/dL Direct Bilirubin 0.2 (0.0-0.2) mg/dL Indirect Bilirubin 0.4 (0.0-1.2) mg/dL AST 15 (13-39) Units/L ALT 14 (7-52) Units/L Alkaline Phosphatase 88 (34-104) Units/L Troponin I < 0.03 (< 0.04) ng/mL Serum Total Protein 7.2 (6.4-8.9) g/dL Albumin 4.5 (3.5-5.7) g/dL Globulin 2.7 (2.4-3.5) g/dL Albumin/Globulin Ratio 1.7 (1.1-2.2) Urine Color (Yellow) Urine Clarity (Clear) Urine pH (5.0-8.0) pH Units Ur Specific [place] (1.010-1.025) Urine Protein (Neg-Trace) mg/dL Urine Glucose (UA) (Normal) mg/dL Urine Ketones (Negative) mg/dL Urine Blood (Negative) Urine Nitrite (Negative) Urine Bilirubin (Negative) Urine Urobilinogen (Normal) mg/dL Ur Leukocyte Esterase (Negative) Urine Microscopic RBC (0-3) per hpf Urine Microscopic WBC (0-3) per hpf Ur Squamous Epith Cells (None-Few) per lpf Urine Bacteria (None-Few) per hpf Hyaline Casts (None-Few) per lpf Ur Culture Indicated? (NO) 07/29/18 07/29/18 Range/Units 21:29 22:54 WBC (4.3-11.1) K/mcL RBC (3.82-4.97) M/mcL Hgb (11.5-15.4) g/dL Hct (35.3-44.9) % MCV (83.0-100.0) fL MCH (28.0-33.3) pg MCHC (31.6-35.5) g/dL RDW (11.5-14.5) % Plt Count (140-400) K/mcL MPV (9.4-12.4) fL Immature Gran % (0-4) % Seg Neutrophils % % Lymphocytes % % Monocytes % % Eosinophils % % Basophils % % Neutrophils # (1.6-8.9) K/mcL Lymphocytes # (0.6-4.6) K/mcL Monocytes # (0.0-1.3) K/mcL Eosinophils # (0.0-0.6) K/mcL Basophils # (0.0-0.2) K/mcL Nucleated RBCs/100 WBC (0) /100 WBC Reactive Lymphocytes (Not Present) Toxic Granulation (Not Present) Platelet Estimate (Normal) Immature Plt Fraction (1.1-6.1) % PT (9.4-12.1) Seconds INR APTT (26.0-36.0) Seconds Sodium (136-145) mEq/L Potassium (3.5-5.1) mEq/L Chloride (98-107) mEq/L Carbon Dioxide (23-29) mEq/L BUN (6-20) mg/dL Creatinine (0.60-1.20) mg/dL Est GFR ( Amer) (> 60) Est GFR (Non-Af Amer) (> 60) BUN/Creatinine Ratio (6-26) Glucose (70-105) mg/dL Calculated Osmolality (280-300) Lactic Acid 1.4 (0.5-2.2) mmol/L Calcium (8.6-10.3) mg/dL Magnesium (1.6-2.6) mg/dL Total Bilirubin (0.3-1.0) mg/dL Direct Bilirubin (0.0-0.2) mg/dL Indirect Bilirubin (0.0-1.2) mg/dL AST (13-39) Units/L ALT (7-52) Units/L Alkaline Phosphatase (34-104) Units/L Troponin I (< 0.04) ng/mL Serum Total Protein (6.4-8.9) g/dL Albumin (3.5-5.7) g/dL Globulin (2.4-3.5) g/dL Albumin/Globulin Ratio (1.1-2.2) Urine Color Dark Yellow (Yellow) Urine Clarity Clear (Clear) Urine pH 5.5 (5.0-8.0) pH Units Ur Specific [place] 1.014 (1.010-1.025) Urine Protein Negative (Neg-Trace) mg/dL Urine Glucose (UA) Normal (Normal) mg/dL Urine Ketones Trace H (Negative) mg/dL Urine Blood Negative (Negative) Urine Nitrite Negative (Negative) Urine Bilirubin Small H (Negative) Urine Urobilinogen Normal (Normal) mg/dL Ur Leukocyte Esterase Negative (Negative) Urine Microscopic RBC 3-5 H (0-3) per hpf Urine Microscopic WBC 3-5 H (0-3) per hpf Ur Squamous Epith Cells Many H (None-Few) per lpf Urine Bacteria None Seen (None-Few) per hpf Hyaline Casts Many H (None-Few) per lpf Ur Culture Indicated? NO (NO) - Radiology Data Radiology results reviewed: Yes I reviewed the patient's radiology results. Chest X-Ray 07/29/18 21:13 IMPRESSION: 1. No acute cardiopulmonary disease. D/ / Hammad Escudero MD / Hammad Escudero MD Interpreting Provider: Hammad Escudero MD Head CT 07/29/18 23:18 IMPRESSION: On the current examination, no acute intracranial abnormalities detected. Those cerebellar masses seen previously are not well seen on the current examination, with no vasogenic edema identified within the cerebellum. D/ / Manuel Moscoso MD / Manuel Moscoso MD Interpreting Provider: Manuel Moscoso MD - EKG Data EKG attestation: Yes I reviewed and interpreted this EKG. EKG results narrative: Heart rate 89 these for minute. Normal sinus rhythm. No ST elevation or ST depression noted. No acute changes noted.
[2018-07-29 21:46] LABS: Basophils % 0.3 %; Segmented Neutrophils % 67.2 %
[2018-07-29 21:47] LABS: Hematocrit 32.4 % (35.3-44.9); Hemoglobin 11.2 g/dL (11.5-15.4); Immature Granulocytes % 22.6 % (0-4); Immature Platelets 10.4 % (1.1-6.1); Lymphocytes # 0.4 K/mcL (0.6-4.6); Lymphocytes % 5.6 %; Mean Corpuscular HGB Conc 34.6 g/dL (31.6-35.5); Mean Corpuscular Hemoglobin 34.8 pg (28.0-33.3); Mean Corpuscular Volume 100.6 fL (83.0-100.0); Mean Platelet Volume 11.2 fL (9.4-12.4); Monocytes # 0.3 K/mcL (0.0-1.3); Monocytes % 4.3 %; Nucleated Red Blood Cells 0.5 /100 WBC (0); Red Blood Count 3.22 M/mcL (3.82-4.97); Red Cell Distribution Width 13.8 % (11.5-14.5)
[2018-07-29 21:51] LABS: INR 1.1; Prothrombin Time 12.2 Seconds (9.4-12.1)
[2018-07-29 21:54] LABS: Activated Partial Thrombo Time 31.9 Seconds (26.0-36.0)
[2018-07-29 21:57] LABS: Neutrophils # 5.2 K/mcL (1.6-8.9); Platelet Count 66 K/mcL (140-400)
[2018-07-29 22:04] LABS: Platelet Estimate Decreased (Normal); Reactive Lymphocytes Present (Not Present); Toxic Granulation Present (Not Present)
[2018-07-29 22:05] LABS: Troponin I < 0.03 ng/mL (< 0.04)
[2018-07-29 22:06] LABS: Alanine Aminotransferase 14 Units/L (7-52); Albumin 4.5 g/dL (3.5-5.7); Albumin/Globulin Ratio 1.7 (1.1-2.2); Alkaline Phosphatase 88 Units/L (34-104); Aspartate Amino Transferase 15 Units/L (13-39); BUN/Creatinine Ratio 7 (6-26); Bilirubin,Direct 0.2 mg/dL (0.0-0.2); Bilirubin,Indirect 0.4 mg/dL (0.0-1.2); Bilirubin,Total 0.6 mg/dL (0.3-1.0); Blood Urea Nitrogen 8 mg/dL (6-20); Calcium 10.2 mg/dL (8.6-10.3); Carbon Dioxide 23 mEq/L (23-29); Chloride 99 mEq/L (98-107); Globulin 2.7 g/dL (2.4-3.5); Glucose 201 mg/dL (70-105); Magnesium 1.5 mg/dL (1.6-2.6); Osmolality,Calculated 284 (280-300); Potassium 3.8 mEq/L (3.5-5.1); Sodium 135 mEq/L (136-145); Total Protein 7.2 g/dL (6.4-8.9); eGFR For Non-African Americans 49 (> 60)
[2018-07-29 23:08] LABS: Bilirubin,Urine Small (Negative); Blood,Urine Negative (Negative); Clarity,Urine Clear (Clear); Color,Urine Dark Yellow (Yellow); Glucose,Urine (UA) Normal (Normal); Ketones,Urine Trace mg/dL (Negative); Leukocyte Esterase,Urine Negative (Negative); Nitrite,Urine Negative (Negative); PH,Urine 5.5 pH Units (5.0-8.0); Protein,Urine Negative (Neg-Trace); Specific Gravity,Urine 1.014 (1.010-1.025); Urobilinogen,Urine Normal (Normal)
[2018-07-29 23:09] LABS: Bacteria,Urine None Seen per hpf (None-Few); Squamous Epithelial Cell,Urine Many per lpf (None-Few)
[2018-07-29] MEDS ORDERED: rOPINIRole 1 MG TABLET PO STA (23:13)
[2018-07-29 23:22] LABS: Hyaline Casts,Urine Many per lpf (None-Few)
[2018-07-30] MEDS ORDERED: Naloxone 0.4 MG/ML INJ IVP PRN (01:48)
[2018-07-30] MEDS ORDERED: *HR* OxyCODONE Immed Rel 5 MG TABLET PO PRN (01:50)
[2018-07-30] MEDS ORDERED: Gadolinium Contrast Agent (WT Based) IV PRN (01:54)
--- NOTE | 2018-07-30 02:18 | Internal Med History&Physical ---
<AdFilemon curry - Last Filed: 07/30/18 05:03> Date of Encounter: 07/30/18 Time of Encounter: 02:14 Internal Medicine - H&P: HPI Chief complaint: dizziness Admitted From: Emergency Dept Plans for Post Hospital Care: Home History of present illness: Ms. Mahoney is a 58 year old female with history of metastatic small cell lung cancer, type 2 diabetes, hyperlipidemia, hypertension presents with dizziness. Patient states that her symptoms began approximately 3 days ago where she developed dizziness. She describes this feeling as a lightheadedness and at times feeling like she was given a pass out. She states moving from a lying to sitting or sitting to standing position made this worse. She denies feeling of room spinning around her. She states she has never had anything like this before. She states she spoke with her oncologist who instructed her to take dexamethasone and if her symptoms did not improve to come to the emergency department. She reports her symptoms have been gradually getting worse. She reports she has had poor appetite and has not been eating or drinking well in the past few days. She reports headache located in the back of her head that has been there for several weeks but has been worsening over the last couple days. She states she has a chronic nonproductive cough that is unchanged. She reports at home she measured her temperature at 100.2 but has not had any other fevers. She denies syncope, vision changes, upper respiratory symptoms, chest pain, shortness of breath, abdominal pain, nausea, vomiting, diarrhea, dysuria. Patient reports she is currently undergoing chemotherapy for small cell lung cancer. She states she is been tolerating her treatments well over than some fatigue. Past Med Surg Social Fam HX - Past Medical History Medical history: cancer, diabetes, hypertension, seizures, other Additional medical history: Stage IV Lung CA w/ mets to Brain Psychiatric history: anxiety, depression - Past Surgical History Surgical History: , cataract, hysterectomy, GABRIELA/BSO, other Additional surgical history: Tubal Ligation - Social History Smoking Status: Current every day smoker Smokeless Tobacco Status: No Alcohol use: none Drug use: none - Family History Mother Hx Family Cardiac Disorders: Yes Hx Family Cancer: Yes Hx Family Endocrine Disorder: Yes (DM) Internal Medicine - H&P: Meds Gabapentin [Neurontin] 600 mg PO TID 09/26/16 [History] Lisinopril [Zestril] 5 mg PO DAILY 09/26/16 [History] Atorvastatin [Lipitor] 40 mg PO HS 02/15/17 [History] Ropinirole HCl [Requip] 0.5 - 1 mg PO HS 02/15/17 [History] Acetaminophen [Tylenol] 500 mg PO Q6HR PRN #20 tablet 01/13/18 [Rx] Famotidine [Heartburn Prevention] 20 mg PO HS 04/14/18 [History] Omeprazole [PriLOSEC] 40 mg PO DAILY 04/14/18 [History] Dulaglutide [Trulicity] 1.5 mg SQ QWEEK 05/17/18 [History] Insulin LISPRO [HumaLOG] 10 - 12 units SQ TIDWM 05/17/18 [History] Levothyroxine [Synthroid] [place] [address]/17/18 [History] Dexamethasone [Decadron] 4 mg PO BID 14 Days #28 tab 05/19/18 [Rx] Dexamethasone [Decadron] 4 mg PO TID #90 tab 05/26/18 [Rx] Polyethylene Glycol 3350 [MiraLAX] 17 gm PO BID #1 bottle 05/27/18 [Rx] Sennosides [Senokot] 2 tab PO BID #120 tablet 05/27/18 [Rx] Promethazine [Phenergan] 25 mg PO Q6HR PRN #30 tablet 06/15/18 [Rx] Insulin Glargine,Hum.rec.anlog [Toujeo Solostar] 30 units SQ HS #5 insuln.pen [Rx] Ondansetron [Zofran] 8 mg PO Q8HR PRN #30 tablet 06/24/18 [Rx] Oxycodone HCl 5 mg PO Q6H PRN 30 Days #120 tablet 07/02/18 [Rx] Oxycodone HCl [Oxycontin] 20 mg PO BID 30 Days #60 tab.er.12h 07/02/18 [Rx] Azithromycin [Azithromycin 6-Tab Pack] 250 mg PO PER PKG DI #6 tab 07/06/18 [Rx] Loratadine [Claritin] 10 mg PO DAILY #7 tablet 07/06/18 [Rx] Sertraline [Zoloft] 75 mg PO DAILY #45 tablet 07/09/18 [Rx] Sertraline [Zoloft] 100 mg PO DAILY #30 tablet 07/09/18 [Rx] Loratadine [Allergy Relief] 10 mg PO AD PRN #10 tablet 07/15/18 [Rx] Polyethylene Glycol 3350 [MiraLAX] 17 gm PO DAILY #1 bottle 07/15/18 [Rx] 3 Allergy/AdvReac Type Severity Reaction Status Date / Time ampicillin Allergy Difficulty Verified 07/06/18 11:21 Breathing Erythromycin Base Allergy Hives Verified 07/06/18 11:21 [From Erythrocin] Penicillins [PCN] Allergy Difficulty Verified 07/06/18 11:21 Breathing Tetracycline Allergy Hives Verified 07/06/18 11:21 ketorolac [From Toradol] AdvReac Migraine Verified 07/06/18 11:21 All Systems PM: A 10-system review of systems was performed and is negative for pertinent findings except as documented above in the HPI. - Constitutional Constitutional: fatigue, fever(s), lethargy, no chills - EENT Eyes: no blurry vision, no change in vision Nose, mouth and throat: no sinus pain, no sinus pressure, no sore throat - Cardiovascular Cardiovascular ROS IM: lightheadedness, no chest pain, no dyspnea, no edema, no irregular heart rhythm, no syncope - Respiratory Respiratory: cough, no dyspnea, no hemoptysis, no chest congestion, no excessive phlegm production, no change in phlegm color - Gastrointestinal Gastrointestinal: no abdominal pain, no diarrhea, no nausea, no vomiting Additional comments: decreased appitite - Musculoskeletal Musculoskeletal ROS IM: arthralgias, no numbness, no tingling - Integumentary Integumentary IM: no erythema, no new lesions - Neurological Neurological ROS: dizziness, headache(s), no confusion, no focal weakness, no numbness, no paresthesias, no tingling - Psychiatric Psychiatric: no anxiety, no depression - Endocrine Endocrine IM: no polydipsia, no polyuria - Hematologic/Lymphatic Hematologic/Lymphatic: no easy bleeding, no easy bruising - Constitutional Vitals: Temp Pulse Resp BP Pulse Ox 98.1 F 82 21 100/63 94 07/29/18 22:35 07/29/18 23:30 07/29/18 23:30 07/29/18 23:30 07/29/18 23:30 General appearance: Present: A&O X 3, pleasant, no acute distress Exam: . - Head Head exam: Present: atraumatic, normal inspection, normocephalic - Eye Eye exam: Present: EOMI, PERRL - ENT ENT exam: Present: mucous membranes dry, normal oropharynx - Neck Neck exam general surgery: Present: full ROM, supple - Respiratory Respiratory exam: Present: CTAB. Absent: rales, rhonchi, wheezes - Cardiovascular Cardiovascular exam: Present: RRR. Absent: gallop, rubs, systolic murmur, tachycardia - GI/Abdominal GI/Abdominal exam: Present: normal bowel sounds, soft. Absent: distended, tenderness - Extremities Exam Extremities exam: Present: warm. Absent: pedal edema, tenderness - Neurological Exam Neurological exam: Present: alert, CN II-XII intact, oriented X3, no focal deficits. Absent: motor sensory deficit, facial droop, speech deficit - Psychiatric Psychiatric exam: Present: normal affect, normal mood - Skin Skin exam: Present: dry, intact, warm Internal Med - H&P Results - Labs CBC & Chem 7: 07/30/18 03:26 07/30/18 03:26 - Assessment and plan (1) Lightheadedness Current Visit: Yes Status: Acute Assessment and plan: Patient presents with lightheadedness and presyncope symptoms. After discussion with her she reports minimal oral intake. Mildly hypertensive on arrival that responded well to fluids. Clinically she appears to be hypovolemic. Worsening brain metastasis can also be contributing. Electrolytes are normal, suspicion for arrhythmia or acute infarct is low. Patient received 2 liters bolus in the emergency department, we will continue maintenance fluid at 100 mL per hour. Patient states that she is hungry now so we will encourage oral intake. Given her known metastatic disease, we will check brain MRI in the morning. (2) Headache Current Visit: No Status: Resolved Assessment and plan: Chronic for patient, slightly worse over the last several days. She states it is been present since she was initially diagnosed with lung cancer with brain metastasis. Given that is worse there is a concern for worsening metastatic disease to the brain. No focal neurologic deficits noted. CT of the head was unremarkable. MRI brain with and without contrast pending. Continue patient's home pain regimen. Qualifiers: Headache type: unspecified Headache chronicity pattern: chronic headache Intractability: not intractable Qualified Code(s): R51 - Headache (3) Brain metastases Current Visit: Yes Status: Acute Assessment and plan: Secondary to small cell lung cancer. Most recent MRI on 05/17/18 revealed multiple cerebellar rim-enhancing lesions concerning for brain metastasis. Given patient's symptoms there is some concern that her metastatic disease is worsening despite radiation therapy. Initial head CT did not identify any new acute process or vasogenic edema however MRI is a more sensitive test for this so will order brain MRI with and without contrast to evaluate for progression of metastatic disease. Until further imaging can be obtained we will continue dexamethasone 4 mg 3 times a day. (4) Hypertension Current Visit: No Status: Chronic Assessment and plan: Chronic. Patient hypertensive on arrival, likely due to dehydration and hypovolemia. Fluid hydration as above. Hold home antihypertensives for now. Qualifiers: Hypertension type: essential hypertension Qualified Code(s): I10 - Essential (primary) hypertension (5) Type 2 diabetes mellitus Current Visit: No Status: Acute Assessment and plan: History of. Blood sugars mildly elevated on presentation at 200. We will institute sliding scale insulin with moderate coverage and restart her long- acting insulin at 30 units nightly. Closely monitor blood sugars and adjust based on readings. Qualifiers: Diabetes mellitus retirement insulin use: with retirement use Diabetes mellitus complication status: without complication Qualified Code(s): E11.9 - Type 2 diabetes mellitus without complications; Z79.4 - alf (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 of insulin (6) DVT prophylaxis Current Visit: No Status: Acute Assessment and plan: EPCDs for now given brain mets (7) Small cell lung cancer Current Visit: Yes Status: Acute Assessment and plan: Extensive stage with brain metastasis. Diagnosed 05/17/18. Underwent whole brain radiotherapy on 06/08/18. Recently completed cycle 2 of carboplatin and etoposide on 07/15/18. Per patient's report she has been tolerating this well other than some fatigue. Oncology has been consulted from the emergency department. - Time Spent With Patient Total time spent is greater than 50% in coordination of care (as documented) at patient's floor/unit and/or counseling patient: <Kenton Fields - Last Filed: 07/30/18 06:12> Date of Encounter: 07/30/18 Time of Encounter: 05:05 - Constitutional Constitutional: fatigue, weakness, no chills, no night sweats - EENT Eyes: no change in vision Ears: no tinnitus Nose, mouth and throat: no nasal congestion, no sore throat - Cardiovascular Cardiovascular ROS IM: lightheadedness, no chest pain, no dyspnea, no palpitations, no syncope - Respiratory Respiratory: cough, no pain on inspiration, no chest congestion, no excessive phlegm production, no change in phlegm color - Gastrointestinal Gastrointestinal: no diarrhea, no vomiting - Genitourinary Genitourinary: no dysuria, no flank pain, no hematuria - Musculoskeletal Musculoskeletal ROS IM: no arthralgias, no back pain - Integumentary Integumentary IM: no rash - Neurological Neurological ROS: dizziness, no vertigo - Constitutional Vitals: Temp Pulse Resp BP Pulse Ox 97.7 F 84 16 103/66 95 07/30/18 03:15 07/30/18 03:15 07/30/18 03:15 07/30/18 03:15 07/30/18 03:15 General appearance: Present: A&O X 3, pleasant, no acute distress - Head Head exam: Present: atraumatic, normal inspection - Eye Eye exam: Present: EOMI, PERRL. Absent: scleral icterus - ENT ENT exam: Present: mucous membranes dry, normal oropharynx - Neck Neck exam general surgery: Present: full ROM, supple. Absent: tenderness, nuchal rigidity, thyromegaly - Respiratory Respiratory exam: Present: CTAB. Absent: chest wall tenderness, rales, respiratory distress, rhonchi, wheezes - Cardiovascular Cardiovascular exam: Present: RRR, +S1, +S2. Absent: diastolic murmur, systolic murmur - GI/Abdominal GI/Abdominal exam: Present: normal bowel sounds, soft. Absent: hepatomegaly, splenomegaly, tenderness - Extremities Exam Extremities exam: Present: full ROM, warm, radial pulses palpable and symmetrical. Absent: calf tenderness, joint swelling, pedal edema, tenderness - Back Exam Back exam: Absent: CVA tenderness (L), CVA tenderness (R) - Neurological Exam Neurological exam: Present: alert, CN II-XII intact, oriented X3, no focal deficits - Psychiatric Psychiatric exam: Present: normal affect, normal mood - Skin Skin exam: Present: dry, intact, warm. Absent: rash Internal Med - H&P Results - Labs CBC & Chem 7: 07/30/18 03:26 07/30/18 03:26 Labs: Short CBC 07/30/18 Range/Units 03:26 WBC 6.4 (4.3-11.1) K/mcL Hgb 9.2 L D (11.5-15.4) g/dL Hct 27.1 L (35.3-44.9) % Plt Count 58 L (140-400) K/mcL Neutrophils # 5.3 (1.6-8.9) K/mcL BMP 07/30/18 03:26 Sodium 137 Potassium 4.1 Chloride 105 Carbon Dioxide 25 BUN 7 Creatinine 0.83 Glucose 220 H Calcium 8.9 - Assessment and plan (1) Headache Current Visit: No Status: Resolved Qualifiers: Headache type: unspecified Headache chronicity pattern: chronic headache Intractability: not intractable Qualified Code(s): R51 - Headache (2) Hypertension Current Visit: No Status: Chronic Qualifiers: Hypertension type: essential hypertension Qualified Code(s): I10 - Essential (primary) hypertension (3) DVT prophylaxis Current Visit: No Status: Acute (4) Type 2 diabetes mellitus Current Visit: No Status: Acute Qualifiers: Diabetes mellitus retirement insulin use: with retirement use Diabetes mellitus complication status: without complication Qualified Code(s): E11.9 - Type 2 diabetes mellitus without complications; Z79.4 - alf (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 of insulin (5) Brain metastases Current Visit: Yes Status: Acute (6) Lightheadedness Current Visit: Yes Status: Acute (7) Small cell lung cancer Current Visit: Yes Status: Acute - Time Spent With Patient Total time spent is greater than 50% in coordination of care (as documented) at patient's floor/unit and/or counseling patient: - Attending Attestation I discussed the patient [place], past medical history, review of systems, lab data , exam findings, and imaging studies with Dr. Bustamante. I then saw and examined patient independently. Patient denies any infectious symptoms other than a one-time reported fever at home of 100.2 degrees Fahrenheit. She denies any shakes, chills, or night sweats. She has a chronic cough which has not changed in years. She denies any vomiting or diarrhea. She did come in with complaints of lightheadedness, weakness, and dizziness. She responded nicely to IV fluids. Of note, she had been on Decadron and recently stopped the Decadron after she had whole brain radiation. We are resuming her Decadron as I am concerned she might have some adrenal insufficiency causing some of her symptomatology. I asked the ER to obtain a CT of the head, which was unremarkable. We will ask oncology to see her today in consultation and help coordinate her care. She did have recent chemotherapy and her blood counts are dropping. She mainly need stimulating factor injections such as G-CSF or Neulasta. Other than my comments above and noted physical exam findings, I agree with Dr. Bustamante's assessment and plan.
[2018-07-30] MEDS ORDERED: D5% in Water 1,000 ML IVC PRN (02:23)
[2018-07-30] MEDS ORDERED: *HR* Dextrose 50 % in Water (Syg) 50 ML SYRINGE IVP PRN (02:23)
[2018-07-30] MEDS ORDERED: Dextrose Gel 15 GM/37.5 ML TUBE PO PRN ×2 (02:23)
[2018-07-30] MEDS: Ringers Solution, Lactated 1,000 ML IVC SCH ×2 (03:05→13:20)
[2018-07-30 04:27] LABS: Hematocrit 27.1 % (35.3-44.9); Mean Corpuscular Volume 101.9 fL (83.0-100.0); Nucleated Red Blood Cells 0.3 /100 WBC (0); Red Blood Count 2.66 M/mcL (3.82-4.97)
[2018-07-30 04:29] LABS: Hemoglobin 9.2 g/dL (11.5-15.4); Immature Platelets 8.4 % (1.1-6.1); Mean Corpuscular HGB Conc 33.9 g/dL (31.6-35.5); Mean Corpuscular Hemoglobin 34.6 pg (28.0-33.3); Mean Platelet Volume 11.7 fL (9.4-12.4); Red Cell Distribution Width 14.1 % (11.5-14.5)
[2018-07-30 04:30] LABS: Platelet Count 58 K/mcL (140-400)
[2018-07-30 04:47] LABS: BUN/Creatinine Ratio 8 (6-26); Blood Urea Nitrogen 7 mg/dL (6-20); Calcium 8.9 mg/dL (8.6-10.3); Carbon Dioxide 25 mEq/L (23-29); Chloride 105 mEq/L (98-107); Glucose 220 mg/dL (70-105); Magnesium 1.4 mg/dL (1.6-2.6); Osmolality,Calculated 289 (280-300); Potassium 4.1 mEq/L (3.5-5.1); Sodium 137 mEq/L (136-145); eGFR For Non-African Americans > 60 (> 60)
[2018-07-30 05:08] LABS: Lymphocytes # 0.6 K/mcL (0.6-4.6); Monocytes # 0.5 K/mcL (0.0-1.3); Neutrophils # 5.3 K/mcL (1.6-8.9)
[2018-07-30 05:09] LABS: Anisocytosis 1+ (Not Present); Platelet Estimate Decreased (Normal); Polychromasia 1+ (Not Present)
[2018-07-30] MEDS ORDERED: *HR* LORazepam 2 MG/ML VIAL IVP ONE (08:10)
[2018-07-30] MEDS: *HR* OxyCODONE ER (12 HR) 20 MG TABLET PO SCH ×2 (08:12→23:21)
[2018-07-30] MEDS: Sennosides 8.6 MG TABLET PO SCH ×2 (08:12→23:21)
[2018-07-30] MEDS: Insulin LISPRO 300 UNITS/3 ML VIAL SQ SCH ×4 (08:24→23:40)
--- NOTE | 2018-07-30 08:53 | Internal Med Progress Note ---
Hospitalist Progress Note - Encounter Date of Encounter: 07/30/18 Time of Encounter: 08:46 - Subjective Interval History: Ms. Mahoney is a 58 y/o F with pmh of metastatic small cell lung cancer, type 2 diabetes, hyperlipidemia, hypertension who was admitted to the hospital last night due to 3 day hx of dizziness and headache. Pt seen and examined at bedside this morning. NAD. States that her symptoms are improving, but that have not yet resolved. She states that she still feels dizzy, but denies feels that the room is spinning. Would like to try eating this morning. Anxious about her upcoming MRI and would like Ativan as it has helped her in the past. Admits to continued headache, chronic changes in vision and hearing. Denies chest pain , sob, abdominal pain, n/v/d, f/c. - Exam Vitals: Temp Pulse Resp BP Pulse Ox 98.3 F 79 14 102/66 96 07/30/18 06:57 07/30/18 06:57 07/30/18 06:57 07/30/18 06:57 07/30/18 06:57 Exam: General: alert, NAD HEENT: EOMI, PERRLA, moist mucous membranes, no head or neck lymphadenopathy Lungs: CTA b/l, no rales, rhonchi to ascultation normal inspection, symmetric chest wall rise CV: regular rate, normal rhythm, +s1 and s2 Abdomen: soft, Non-Tender, normal bowel sounds; no distention, guarding, rebound , rigidity Extremities: normal inspection, full ROM Neurological exam: AAO X3 Psychiatric: normal mood and affect Skin: warm, dry, intact - Assessment and Plan (1) Lightheadedness Current Visit: Yes Status: Acute Assessment and Plan: Pt reports continued feelings of lightheadedness although she states that her symptoms are improving Denies any syncopal or presyncopal episodes; admits to relation with positional changes admits to multiple days of decreased oral intake prior to admission pt hypotensive on admission Received 2 liters bolus in the emergency department Hx of brain MRI positive for mets 2/2 small cell lung cancer we will continue maintenance fluid at 100 mL per hour encourage oral intake will repeat brain MRI (2) Headache Current Visit: No Status: Chronic Assessment and Plan: Pt reports multiple week hx of headache. Admits to pain in the posterior aspect of her head states that her symptoms have worsened over the past 3 days will continued current pain regiment CT negative for acute pathology as mentioned above, pt has hx of brain mets, will repeat MRI w/ and w/o contrast (3) Brain metastases Current Visit: Yes Status: Chronic Assessment and Plan: MRI on 05/17/18 revealed multiple cerebellar rim-enhancing lesions concerning for brain metastasis Pt has hx of small cell lung cancer No acute changes seen on head CT will repeat MRI w/ and w/o contrast will continue dexamethasone (4) Hypotension Current Visit: Yes Status: Acute Assessment and Plan: Pt hypotensive on admission with pressures 80s/50s pt responded to fluid resuscitation hold antihypertensives for time being (5) Type 2 diabetes mellitus Current Visit: No Status: Acute Assessment and Plan: hx of t2dm BG of 200+ on admission 30 U Levemir daily and medium dose SSI (6) Small cell lung cancer Current Visit: Yes Status: Acute Assessment and Plan: Diagnosed 05/17/18 Underwent whole brain radiotherapy on 06/08/18 Completed cycle 2 of carboplatin and etoposide on 07/15/18 Pt reports no complaints with chemo regiment Oncology consulted (7) Hypomagnesemia Current Visit: Yes Status: Acute Assessment and Plan: mg of 1.4 on morning labs, repleated DVT Prophylaxis: SCDs - Time Spent with Patient Total time spent is greater than 50% in coordination of care (as documented) at patient's floor/unit and/or counseling patient: Internal Medicine: Result - Labs CBC & Chem 7: 07/30/18 03:26 07/30/18 03:26 Labs: Short CBC 07/30/18 Range/Units 03:26 WBC 6.4 (4.3-11.1) K/mcL Hgb 9.2 L D (11.5-15.4) g/dL Hct 27.1 L (35.3-44.9) % Plt Count 58 L (140-400) K/mcL Neutrophils # 5.3 (1.6-8.9) K/mcL BMP 07/30/18 03:26 Sodium 137 Potassium 4.1 Chloride 105 Carbon Dioxide 25 BUN 7 Creatinine 0.83 Glucose 220 H Calcium 8.9 - ABG Interpretation ABG results: PT/INR, D-dimer PT 12.2 Seconds (9.4-12.1) H 07/29/18 21:29 Consult Discharge Plan - Plan Referrals: Luisa Israel MD [Primary Care Provider] - (2) Headache Qualifiers: Headache type: unspecified Headache chronicity pattern: chronic headache Intractability: not intractable Qualified Code(s): R51 - Headache (4) Hypotension Qualifiers: Hypotension type: unspecified hypotension type Qualified Code(s): I95.9 - Hypotension, unspecified (5) Type 2 diabetes mellitus Qualifiers: Diabetes mellitus half-way insulin use: with half-way use Diabetes mellitus complication status: without complication Qualified Code(s): E11.9 - Type 2 diabetes mellitus without complications; Z79.4 - alf (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 of insulin
--- NOTE | 2018-07-30 09:14 | Internal Med Progress Note ---
<Fide Cuba - Last Filed: 07/30/18 14:07> Hospitalist Progress Note - Encounter Date of Encounter: 07/30/18 - Exam Vitals: Temp Pulse Resp BP Pulse Ox 98.6 F 79 14 107/65 97 07/30/18 10:44 07/30/18 13:28 07/30/18 10:44 07/30/18 13:28 07/30/18 10:44 - Assessment and Plan (1) Headache Current Visit: No Status: Chronic (2) Hypertension Current Visit: No Status: Chronic (3) DVT prophylaxis Current Visit: No Status: Acute (4) Type 2 diabetes mellitus Current Visit: No Status: Acute (5) Brain metastases Current Visit: Yes Status: Chronic (6) Lightheadedness Current Visit: Yes Status: Acute (7) Small cell lung cancer Current Visit: Yes Status: Acute (8) BPPV (benign paroxysmal positional vertigo) Current Visit: Yes Status: Suspected (9) Meniere disease Current Visit: Yes Status: Chronic (10) Orthostatic hypotension Current Visit: Yes Status: Suspected - Time Spent with Patient Total time spent is greater than 50% in coordination of care (as documented) at patient's floor/unit and/or counseling patient: Internal Medicine: Result - Labs CBC & Chem 7: 07/30/18 03:26 07/30/18 03:26 Labs: Short CBC 07/30/18 Range/Units 03:26 WBC 6.4 (4.3-11.1) K/mcL Hgb 9.2 L D (11.5-15.4) g/dL Hct 27.1 L (35.3-44.9) % Plt Count 58 L (140-400) K/mcL Neutrophils # 5.3 (1.6-8.9) K/mcL BMP 07/30/18 03:26 Sodium 137 Potassium 4.1 Chloride 105 Carbon Dioxide 25 BUN 7 Creatinine 0.83 Glucose 220 H Calcium 8.9 - ABG Interpretation ABG results: PT/INR, D-dimer PT 12.2 Seconds (9.4-12.1) H 07/29/18 21:29 - Impressions Impressions Brain MRI 07/30/18 01:54 IMPRESSION: No convincing evidence of enhancing lesions to suggest intracranial metastasis. Previously seen enhancing lesions are no longer identified. No acute infarct, intracranial hemorrhage, or significant mass effect. Mild amount of chronic small vessel ischemic white matter disease and diffuse cerebral volume loss. RECOMMENDATIONS: Follow-up per oncology protocol. D/ / 07/30/2018 11:23:17 Mark Keith MD / nadine Interpreting Provider: Mark Keith MD Consult Discharge Plan - Plan Referrals: Luisa Israel MD [Primary Care Provider] - - Attending Attestation I examined this patient and my medical decision-making was reviewed with the Resident Physician Dr Mejia. I agree with the documented findings, disposition and treatment plan as described except to the extent set forth below/addl details as below. Ms Mahoney was admitted for dizziness and presyncope. She is currently undergoing chemotherapy for lung cancer with cerebellar brain mets, with headache, on dexamethasone at home. Awake, family at bedside. Tired post MRI as she required low dose ativan pre imaging for claustrophobia. Schrader is tolerable and controlled with pain meds. Denies any dizziness at this time, lightheadedness, sob, cp, palpitations, nausea or emesis. She is currently eating lunch. Denies any focal numbness/ tingling, paralysis or weakness. No fevers or chills. Denies any bleeding, + easy bruising gen- alert, awake,appears stated age eyes- pupils equal round , eom intact cv- reg rate and rhythm, normal s1,s2, no murmurs appreciated, no le edema lungs- ctabl, no wheezing, rhonchi or crackles, diminished posteriorly abd- soft, non tender, non distended, + bs neuro- AAOx3, CN grossly intact, no focal deficits Presyncope most likely multifactorial- BPPV and Hx Meniere Disease, poor oral intake and suspect, given description of exacerbating factors, orthostatic hypotension, known cerebellar mets -ua and CXR neg, no wbc elevation , though on chemo, no fevers here--not suspecting infectious cause at this time -CT head and MRI brain no longer identify previous brain mets, no acute infarct or mass effect -s/p IVFs but would check orthostatic VS, cont fluid rehydration, encourage oral intake -+ rupesh hallpike -may begin meclizine if no improvement with rehydration -pt, fall precautions Headache most likely 2/2 brain mets and poor oral intake -CT head and MRI as above -cont dexamethasone -oncology consulted Small Cell Lung Ca with previously identified Brain Mets -care as per oncology -last chemo 07/24 Thrombocytopenia, Anemia in setting of chemotherapy and cancer as above, wbc 6.4 -no active bleeding, monitor for stability, scds for vte ppx + ambulation given risk vs benefit of lovenox vte ppx with brain met hx <Roberto,Mayra - Last Filed: 07/30/18 15:50> Hospitalist Progress Note - Encounter Date of Encounter: 07/30/18 Time of Encounter: 07:45 - Subjective Interval History: Ms. Mahoney was seen at bedside this morning. She has history of etastatic small cell lung cancer, type 2 diabetes, hyperlipidemia, hypertension. She recently had her second round of chemotherapy on 07/24/19. Her vitals were within normal limits and laboratory study showed a decrease in hemoglobin from 11.2 to 9.2 within the past 24 hours. Her platelet count at admission was 66 and in the past 24 hours had a drop to 58 today. Her magnesium was low at 1.4 and was replaced. This morning she stated three days ago she started feeling dizzy. The sensation was noted when she got up from a seated position from her bed to a standing position. She denied sensation of room spinning. Upon standing up she felt unsteady due to the dizziness but did not fall. She stated which sitting in bed she is not dizzy but if she sits up she starts to get dizzy. Her appetite has been poor the past a few days due to nausea. Upon further questioning she also noted history of meniere disease diagnosed years ago. She also elicited history of blurry vision after starting radiation to her head but has been unchanged since the occurrence of dizziness. She denied fever, chills, emesis, shortness of breath, chest pain, dysuria or abdominal pain. - Exam Vitals: Temp Pulse Resp BP Pulse Ox 98.3 F 79 14 102/66 96 07/30/18 06:57 07/30/18 06:57 07/30/18 06:57 07/30/18 06:57 07/30/18 06:57 Exam: Constitutional: Alert, in no acute distress, comfortable in bed HEENT: hair loss due to chemotherapy, normocephalic, atraumatic, moist mucus membrane, moist mucus membrane Heart: Normal, regular rate and rhythm, no murmurs Lungs: lungs clear and equal bilaterally Abdomen: Soft, non distended, non tender, no rebound or gaurding Extremities: no edema, no rashes Skin: Skin warm and dry, no lesions, no rashes, no jaundice Psych: thought content congruent, appropriate affect Neurological Alert and oriented x 3 Dizzy when lowering the bed from 30 degree position to flat Dizziness when flexing the head 15 degrees Nystagmus noted when flexing the head and turning it to the right and left-- nystagmus with turning left and right - Assessment and Plan (1) BPPV (benign paroxysmal positional vertigo) Current Visit: Yes Status: Suspected Assessment and Plan: Ms. Mahoney started having dizziness three day ago and is described as feeling of "lightheadedness" when moving from a sitting position to standing. She denied a sensation of the headache when she was sitting still in bed. Upon examination, Rupesh Hallpike maneuver was performed and was positive for nystagmus of bilateral eyes. Plan: CT head negative MRI brain to rule out vascular causes Low salt diet Can use diuretics if MRI is negative Continue to monitor (2) Meniere disease Current Visit: Yes Status: Chronic Assessment and Plan: She has history of meniere disease. She also recently had brain radiation and feels fullness in her right ear. She also feels a sensation of tinnitus in her right ear. She stated some of the symptoms seems similar to her previous episode of meniere disease but the positional dizziness is new. Plan: Low salt diet MRI is negative, no mass visualized Continue phenergan Orthostatics to rule out postural hypotension (3) Orthostatic hypotension Current Visit: Yes Status: Suspected Assessment and Plan: Recent onset of dizziness with positional changes. Her diet has been poor since 07/14/18 her last dose of chemotherapy. Orthostatics were negative but she did receive 2 liters of fluid. Plan: Continue lactate ringer Continue to monitor blood pressure (4) Headache Current Visit: No Status: Chronic Assessment and Plan: Chronic for patient, slightly worse over the last several days. She states it is been present since she was initially diagnosed with lung cancer with brain metastasis. Given that is worse there is a concern for worsening metastatic disease to the brain. No focal neurologic deficits noted. CT of the head was unremarkable. Plan: MRI brain with and without contrast: No acute infarct, intracranial hemorrhage, or significant mass effect. Mild amount of chronic small vessel ischemic white matter disease and diffuse cerebral volume loss. Continue patient's home pain regimen Continue diet Promethazine for nausea Continue to monitor glucose (5) Brain metastases Current Visit: Yes Status: Chronic Assessment and Plan: Secondary to small cell lung cancer. Most recent MRI on 05/17/18 revealed multiple cerebellar rim-enhancing lesions concerning for brain metastasis. Given patient's symptoms there is some concern that her metastatic disease is worsening despite radiation therapy. Initial head CT did not identify any new acute process or vasogenic edema. Plan: MRI is a more sensitive test, pending MRI w/wo contrast. Until further imaging can be obtained we will continue dexamethasone 4 mg 3 times a day per home oncologist recommendation Oncologist consulted (6) Lightheadedness Current Visit: Yes Status: Acute Assessment and Plan: Patient presents with lightheadedness and presyncope symptoms likely due to BPPV vs. postural hypotension vs dehydradtion vs. vascular disease vs. brain metastasis vs chemotherapy induced. Mildly hypertensive on arrival that responded well to fluids. This morning she may still be volume deplete due to her low urinary output. Magnesium was low but has been replaced. Patient received 2 liters bolus in the emergency department. Plan: We will continue maintenance fluid at 100 mL per hour Patient states that she is hungry now so we will encourage oral intake Given her known metastatic disease, brain MRI pending (7) Type 2 diabetes mellitus Current Visit: No Status: Acute Assessment and Plan: History of diabetes. Blood sugars mildly elevated on presentation at 200 and 220 this morning. Plan: Sliding scale insulin with moderate coverage and Restart her long-acting insulin at 30 units Closely monitor blood sugars and adjust based on readings. (8) Small cell lung cancer Current Visit: Yes Status: Acute Assessment and Plan: Extensive stage with brain metastasis. Diagnosed 05/17/18. Underwent whole brain radiotherapy on 06/08/18. Recently completed cycle 2 of carboplatin and etoposide on 07/15/18. Per patient's report she has been tolerating this well other than some fatigue. Plan: Oncology has been consulted (9) Hypertension Current Visit: No Status: Chronic Assessment and Plan: Chronic. Patient hypertensive on arrival, likely due to dehydration and hypovolemia. Currently blood pressure is stable at 103/66. Plan: Fluid hydration Hold home antihypertensives for now (10) DVT prophylaxis Current Visit: No Status: Acute Assessment and Plan: EPCDs for now given brain mets - Time Spent with Patient Total time spent is greater than 50% in coordination of care (as documented) at patient's floor/unit and/or counseling patient: Internal Medicine: Result - Labs CBC & Chem 7: 07/30/18 03:26 07/30/18 03:26 Labs: Short CBC 07/30/18 Range/Units 03:26 WBC 6.4 (4.3-11.1) K/mcL Hgb 9.2 L D (11.5-15.4) g/dL Hct 27.1 L (35.3-44.9) % Plt Count 58 L (140-400) K/mcL Neutrophils # 5.3 (1.6-8.9) K/mcL BMP 07/30/18 03:26 Sodium 137 Potassium 4.1 Chloride 105 Carbon Dioxide 25 BUN 7 Creatinine 0.83 Glucose 220 H Calcium 8.9 - ABG Interpretation ABG results: PT/INR, D-dimer PT 12.2 Seconds (9.4-12.1) H 07/29/18 21:29 <Fide [place] - Last Filed: 07/30/18 14:07> (1) Headache Qualifiers: Headache type: unspecified Headache chronicity pattern: chronic headache Intractability: not intractable Qualified Code(s): R51 - Headache (2) Hypertension Qualifiers: Hypertension type: essential hypertension Qualified Code(s): I10 - Essential (primary) hypertension (4) Type 2 diabetes mellitus Qualifiers: Diabetes mellitus termite treater helper insulin use: with termite treater helper use Diabetes mellitus complication status: without complication Qualified Code(s): E11.9 - Type 2 diabetes mellitus without complications; Z79.4 - penitentiary (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 of insulin (9) Meniere disease Qualifiers: Laterality: right Qualified Code(s): H81.01 - Meniere's disease, right ear <Mayra Mejia - Last Filed: 07/30/18 15:50> (1) BPPV (benign paroxysmal positional vertigo) Qualifiers: Laterality: bilateral Qualified Code(s): H81.13 - Benign paroxysmal vertigo, bilateral (2) Meniere disease Qualifiers: Laterality: right Qualified Code(s): H81.01 - Meniere's disease, right ear (4) Headache Qualifiers: Headache type: unspecified Headache chronicity pattern: chronic headache Intractability: not intractable Qualified Code(s): R51 - Headache (7) Type 2 diabetes mellitus Qualifiers: Diabetes mellitus termite treater helper insulin use: with fci use Diabetes mellitus complication status: without complication Qualified Code(s): E11.9 - Type 2 diabetes mellitus without complications; Z79.4 - penitentiary (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 of insulin (9) Hypertension Qualifiers: Hypertension type: essential hypertension Qualified Code(s): I10 - Essential (primary) hypertension
--- NOTE | 2018-07-30 14:52 | Electrocardiograph Report ---
[address] [address] Test Date: 2018-07-29 Pat Name: Lela Mahoney Department: [id number] Room: 3A55 Gender: F Dinker: : 1960 Requested By: Escobar Bejarano Order Number: [id number] Reading MD: Zac Day Measurements Intervals [place] Rate: 89 P: 38 SC: 141 QRS: 6 QRSD: 76 T: 33 QT: 353 QTc: 430 Interpretive Statements Sinus rhythm Electronically Signed On 07-30-2018 14:50:34 EDT by Zac Day
--- NOTE | 2018-07-30 15:37 | Oncology Inp Consult Note ---
<Kimmie Marsh L - Last Filed: 07/30/18 16:30> Date of Encounter: 07/30/18 Time of Encounter: 15:00 Assessment and Plan (1) Small cell lung cancer Status: Acute Assessment and plan: Whole brain radiotherapy completed 06/08/2018 S/P cycle #2, Day 1 Carboplatin/Etoposide 07/15/2018 Cytopenias likely secondary to therapy, no neutropenia She has had a positive radiographic response to treatment. Plan to continue with treatment as scheduled on an outpatient basis (2) BPPV (benign paroxysmal positional vertigo) Status: Suspected Assessment and plan: Likely multifactorial- BPPV and Hx Meniere Disease, dehydration, orthostatic hypotension CT head and brain MRI negative for acute findings or metastatic disease, she has had a positive radiographic response to brain radiotherapy Plan: If patients symptoms continue to improve and she remains medically stable likely expect discharge within next day or so per primary teams discretion Continue IVF, encouraged PO intake Her symptoms do not appear to be related to malignancy, her brain MRI is encouraging of this, but may be exacerbated by her dehydration secondary to chemotherapy as discussed above Continue with supportive management Qualifiers: Laterality: bilateral Qualified Code(s): H81.13 - Benign paroxysmal vertigo , bilateral - Data of Consult Patient: known to practice within the last 3 years Consult date: 07/30/18 Requesting Physician: Fide [place] Primary Care Provider: Luisa Israel MD - Consult Narrative Reason for consult: Small cell carcinoma History of present illness: Ms. 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 She is s/p whole brain radiotherapy completed 06/08/2018. Current treatment includes palliative intent carboplatin with etoposide initiated 06/24/2018. Past Med Surg Social Fam HX - Past Medical History Medical history: cancer, diabetes, hypertension, seizures, other Additional medical history: Stage IV Lung CA w/ mets to Brain Psychiatric history: anxiety, depression - Past Surgical History Surgical History: , cataract, hysterectomy, GABRIELA/BSO, other Additional surgical history: Tubal Ligation - Social History Smoking Status: Current every day smoker Packs per day: 1/2 Smokeless Tobacco Status: No Alcohol use: none Drug use: none - Family History Mother Hx Family Cardiac Disorders: Yes Hx Family Cancer: Yes Hx Family Endocrine Disorder: Yes (DM) Medications and Allergies Gabapentin [Neurontin] 600 mg PO TID 09/26/16 [History] Atorvastatin [Lipitor] 40 mg PO HS 02/15/17 [History] Ropinirole HCl [Requip] 0.5 - 1 mg PO HS 02/15/17 [History] Acetaminophen [Tylenol] 500 mg PO Q6HR PRN #20 tablet 01/13/18 [Rx] Famotidine [Heartburn Prevention] 20 mg PO HS 04/14/18 [History] Omeprazole [PriLOSEC] 40 mg PO DAILY 04/14/18 [History] Dulaglutide [Trulicity] 1.5 mg SQ QWEEK 05/17/18 [History] Insulin LISPRO [HumaLOG] 10 - 12 units SQ TIDWM 05/17/18 [History] Sennosides [Senokot] 2 tab PO BID #120 tablet 05/27/18 [Rx] Promethazine [Phenergan] 25 mg PO Q6HR PRN #30 tablet 06/15/18 [Rx] Insulin Glargine,Hum.rec.anlog [Toujeo Solostar] 30 units SQ HS #5 insuln.pen [Rx] Ondansetron [Zofran] 8 mg PO Q8HR PRN #30 tablet 06/24/18 [Rx] Polyethylene Glycol 3350 [MiraLAX] 17 gm PO DAILY #1 bottle 07/15/18 [Rx] Levothyroxine [Synthroid] 150 mcg PO DAILY 07/30/18 [History] Oxycodone HCl 5 mg PO Q6H PRN 30 Days #120 tablet 07/30/18 [Rx] Oxycodone HCl [Oxycontin] 20 mg PO BID 30 Days #60 tab.er.12h 07/30/18 [Rx] Sertraline [Zoloft] 200 mg PO DAILY 07/30/18 [History] Dexamethasone [Decadron] 4 mg PO TID 4 Days #12 tab 08/01/18 [Rx] Meclizine [Antivert] 12.5 mg PO BID #10 tablet 08/01/18 [Rx] Oxycodone HCl/Acetaminophen [Percocet 5-325 mg Tablet] 1 each PO Q6H PRN 3 Days #12 tablet 08/01/18 [Rx] 3 Allergy/AdvReac Type Severity Reaction Status Date / Time ampicillin Allergy Difficulty Verified 07/06/18 11:21 Breathing Erythromycin Base Allergy Hives Verified 07/06/18 11:21 [From Erythrocin] Penicillins [PCN] Allergy Difficulty Verified 07/06/18 11:21 Breathing Tetracycline Allergy Hives Verified 07/06/18 11:21 ketorolac [From Toradol] AdvReac Migraine Verified 07/06/18 11:21 Constitutional: Present: anorexia, fatigue, fever(s) (prior to admission TMAX 100.2), weakness. Absent: frequent falls Eyes: Absent: change in vision Nose, mouth and throat: Absent: dysphagia, odynophagia Cardiovascular: Absent: chest pain, palpitations Respiratory: Absent: cough, dyspnea, hemoptysis Gastrointestinal: Present: diarrhea, nausea. Absent: abdominal pain, hematemesis, hematochezia, melena, vomiting Genitourinary: Absent: dysuria Musculoskeletal: Present: muscle cramps, muscle weakness Integumentary: Absent: wounds Neurological: Present: dizziness. Absent: confusion, focal weakness, frequent falls Additional comments: chronic peripheral neuropathy Hematologic/Lymphatic: Present: as per HPI Oncology - Exam - Constitutional Vitals: Temp Pulse Resp BP Pulse Ox 97.7 F 77 14 104/69 93 07/30/18 15:23 07/30/18 15:23 07/30/18 15:23 07/30/18 15:23 07/30/18 15:23 General appearance: cooperative, no acute distress, no febrile - Head Head exam: Present: atraumatic - Eye Eye exam: Present: PERRL - ENT ENT exam: Present: mucous membranes moist - Respiratory Respiratory exam: Present: CTAB. Absent: respiratory distress - Cardiovascular Cardiovascular exam: Present: RRR, +S1, +S2 - GI/Abdominal GI/Abdominal exam: Present: normal bowel sounds, soft. Absent: tenderness - Extremities Exam Extremities exam: Present: normal inspection. Absent: calf tenderness - Neurological Exam Neurological exam: Present: alert, oriented X3, no focal deficits, strengths equal and symetr throughout - Psychiatric Psychiatric exam: Present: normal affect, normal mood - Skin Skin exam: Present: dry, intact, normal color, warm Oncology - Results Labs: 3 10/02/1107/30/18 07/30/18 08:20 03:26 03:26 WBC 6.4 RBC 2.66 L Hgb 9.2 L D Hct 27.1 L MCV 101.9 H MCH 34.6 H MCHC 33.9 RDW 14.1 Plt Count 58 L MPV 11.7 Seg Neutrophils % 78.0 Band Neutrophils % 4.0 Lymphocytes % 10.0 Monocytes % 8.0 Neutrophils # 5.3 Lymphocytes # 0.6 Monocytes # 0.5 Nucleated RBCs/100 WBC 0.3 H Platelet Estimate Decreased L Immature Plt Fraction 8.4 H Polychromasia 1+ A Anisocytosis 1+ A Sodium 137 Potassium 4.1 Chloride 105 Carbon Dioxide 25 BUN 7 Creatinine 0.83 Est GFR ( Amer) > 60 Est GFR (Non-Af Amer) > 60 BUN/Creatinine Ratio 8 Glucose 220 H POC Glucose 213 H Calculated Osmolality 289 Calcium 8.9 Magnesium 1.4 L Consult Discharge Plan - Plan Instructions: Oxycodone/Acetaminophen (By mouth), Meclizine (By mouth), Dexamethasone (By mouth) Additional Instructions: Please follow with her primary care physician within 5 days. Please also call your oncologist on Friday for further instructions regarding her care plan. Return to the emergency room with any return or worsening of symptoms. Referrals: Luisa Israel MD [Primary Care Provider] - Prescriptions: Dexamethasone [Decadron] 4 mg PO TID 4 Days #12 tab Meclizine [Antivert] 12.5 mg PO BID #10 tablet Oxycodone HCl/Acetaminophen [Percocet 5-325 mg Tablet] 1 each PO Q6H PRN 3 Days #12 tablet PRN Reason: Breakthrough Pain <Santhosh Boles S - Last Filed: 08/02/18 17:57> Date of Encounter: 08/02/18 - Data of Consult Requesting Physician: Fide [place] Primary Care Provider: Luisa Israel MD - Consult Narrative History of present illness: Ms. Mahoney is a 58 year old female Oncology - Exam - Constitutional Vitals: Temp Pulse Resp BP Pulse Ox 98.0 F 79 16 123/78 98 08/01/18 11:27 08/01/18 11:27 08/01/18 11:27 08/01/18 11:27 08/01/18 11:27 Oncology - Results Labs: 3 08/01/18 08/01/18 08/01/18 11:26 06:54 00:54 WBC RBC Hgb Hct MCV MCH MCHC RDW Plt Count MPV Immature Gran % Seg Neutrophils % Band Neutrophils % Lymphocytes % Monocytes % Eosinophils % Basophils % Myelocytes % Neutrophils # Lymphocytes # Monocytes # Eosinophils # Basophils # Nucleated RBCs/100 WBC Toxic Granulation Platelet Estimate Immature Plt Fraction Polychromasia Anisocytosis Sodium 135 L Potassium 4.2 Chloride 102 Carbon Dioxide 28 BUN 15 Creatinine 0.86 Est GFR ( Amer) > 60 Est GFR (Non-Af Amer) > 60 BUN/Creatinine Ratio 17 Glucose 175 H POC Glucose 147 H 123 H Calculated Osmolality 285 Calcium 9.2 Magnesium 1.6 Urine Color Urine Clarity Urine pH Ur Specific [place] Urine Protein Urine Glucose (UA) Urine Ketones Urine Blood Urine Nitrite Urine Bilirubin Urine Urobilinogen Ur Leukocyte Esterase Urine Microscopic RBC Ur Squamous Epith Cells Urine Bacteria Hyaline Casts Ur Culture Indicated? 3 08/01/18 07/31/18 07/31/18 00:54 20:42 18:32 WBC 12.4 H D RBC 2.37 L Hgb 8.1 L Hct 24.3 L MCV 102.5 H MCH 34.2 H MCHC 33.3 RDW 14.3 Plt Count 105 L MPV 10.5 Immature Gran % 22.6 H Seg Neutrophils % 65.9 Band Neutrophils % Lymphocytes % 4.5 Monocytes % 6.4 Eosinophils % 0.0 Basophils % 0.6 Myelocytes % Neutrophils # 8.2 Lymphocytes # 0.6 Monocytes # 0.8 Eosinophils # 0.0 Basophils # 0.1 Nucleated RBCs/100 WBC 0.6 H Toxic Granulation Present A Platelet Estimate Slight Decrease L Immature Plt Fraction Polychromasia Anisocytosis Sodium Potassium Chloride Carbon Dioxide BUN Creatinine Est GFR ( Amer) Est GFR (Non-Af Amer) BUN/Creatinine Ratio Glucose POC Glucose 206 H Calculated Osmolality Calcium Magnesium Urine Color Yellow Urine Clarity Slightly Hazy Urine pH 5.5 Ur Specific [place] 1.008 L Urine Protein Negative Urine Glucose (UA) Normal Urine Ketones Negative Urine Blood Negative Urine Nitrite Negative Urine Bilirubin Negative Urine Urobilinogen Normal Ur Leukocyte Esterase Negative Urine Microscopic RBC 3-5 H Ur Squamous Epith Cells Many H Urine Bacteria None Seen Hyaline Casts None Seen Ur Culture Indicated? NO 3 07/31/18 07/31/18 07/31/18 16:10 15:49 11:14 WBC RBC Hgb 8.8 L Hct 26.0 L MCV MCH MCHC RDW Plt Count MPV Immature Gran % Seg Neutrophils % Band Neutrophils % Lymphocytes % Monocytes % Eosinophils % Basophils % Myelocytes % Neutrophils # Lymphocytes # Monocytes # Eosinophils # Basophils # Nucleated RBCs/100 WBC Toxic Granulation Platelet Estimate Immature Plt Fraction Polychromasia Anisocytosis Sodium Potassium Chloride Carbon Dioxide BUN Creatinine Est GFR ( Amer) Est GFR (Non-Af Amer) BUN/Creatinine Ratio Glucose POC Glucose 228 H 335 H Calculated Osmolality Calcium Magnesium Urine Color Urine Clarity Urine pH Ur Specific [place] Urine Protein Urine Glucose (UA) Urine Ketones Urine Blood Urine Nitrite Urine Bilirubin Urine Urobilinogen Ur Leukocyte Esterase Urine Microscopic RBC Ur Squamous Epith Cells Urine Bacteria Hyaline Casts Ur Culture Indicated? 3 07/31/18 07/31/18 07/31/18 07:37 04:08 04:08 WBC 7.9 RBC 2.40 L Hgb 8.2 L Hct 24.7 L MCV 102.9 H MCH 34.2 H MCHC 33.2 RDW 13.9 Plt Count 79 L MPV 11.4 Immature Gran % Seg Neutrophils % 62.0 Band Neutrophils % 24.0 H Lymphocytes % 6.0 Monocytes % 6.0 Eosinophils % Basophils % Myelocytes % 2.0 H Neutrophils # 6.8 Lymphocytes # 0.5 L Monocytes # 0.5 Eosinophils # Basophils # Nucleated RBCs/100 WBC 0.3 H Toxic Granulation Platelet Estimate Decreased L Immature Plt Fraction 7.7 H Polychromasia Anisocytosis 1+ A Sodium 133 L Potassium 4.5 Chloride 103 Carbon Dioxide 26 BUN 12 Creatinine 0.74 Est GFR ( Amer) > 60 Est GFR (Non-Af Amer) > 60 BUN/Creatinine Ratio 16 Glucose 223 H POC Glucose 243 H Calculated Osmolality 283 Calcium 9.2 Magnesium 1.5 L Urine Color Urine Clarity Urine pH Ur Specific [place] Urine Protein Urine Glucose (UA) Urine Ketones Urine Blood Urine Nitrite Urine Bilirubin Urine Urobilinogen Ur Leukocyte Esterase Urine Microscopic RBC Ur Squamous Epith Cells Urine Bacteria Hyaline Casts Ur Culture Indicated? 3 07/30/18 07/30/18 07/30/18 20:41 16:00 11:27 WBC RBC Hgb Hct MCV MCH MCHC RDW Plt Count MPV Immature Gran % Seg Neutrophils % Band Neutrophils % Lymphocytes % Monocytes % Eosinophils % Basophils % Myelocytes % Neutrophils # Lymphocytes # Monocytes # Eosinophils # Basophils # Nucleated RBCs/100 WBC Toxic Granulation Platelet Estimate Immature Plt Fraction Polychromasia Anisocytosis Sodium Potassium Chloride Carbon Dioxide BUN Creatinine Est GFR ( Amer) Est GFR (Non-Af Amer) BUN/Creatinine Ratio Glucose POC Glucose 280 H 302 H 244 H Calculated Osmolality Calcium Magnesium Urine Color Urine Clarity Urine pH Ur Specific [place] Urine Protein Urine Glucose (UA) Urine Ketones Urine Blood Urine Nitrite Urine Bilirubin Urine Urobilinogen Ur Leukocyte Esterase Urine Microscopic RBC Ur Squamous Epith Cells Urine Bacteria Hyaline Casts Ur Culture Indicated? 3 07/30/18 07/30/18 07/30/18 08:20 03:26 03:26 WBC 6.4 RBC 2.66 L Hgb 9.2 L D Hct 27.1 L MCV 101.9 H MCH 34.6 H MCHC 33.9 RDW 14.1 Plt Count 58 L MPV 11.7 Immature Gran % Seg Neutrophils % 78.0 Band Neutrophils % 4.0 Lymphocytes % 10.0 Monocytes % 8.0 Eosinophils % Basophils % Myelocytes % Neutrophils # 5.3 Lymphocytes # 0.6 Monocytes # 0.5 Eosinophils # Basophils # Nucleated RBCs/100 WBC 0.3 H Toxic Granulation Platelet Estimate Decreased L Immature Plt Fraction 8.4 H Polychromasia 1+ A Anisocytosis 1+ A Sodium 137 Potassium 4.1 Chloride 105 Carbon Dioxide 25 BUN 7 Creatinine 0.83 Est GFR ( Amer) > 60 Est GFR (Non-Af Amer) > 60 BUN/Creatinine Ratio 8 Glucose 220 H POC Glucose 213 H Calculated Osmolality 289 Calcium 8.9 Magnesium 1.4 L Urine Color Urine Clarity Urine pH Ur Specific [place] Urine Protein Urine Glucose (UA) Urine Ketones Urine Blood Urine Nitrite Urine Bilirubin Urine Urobilinogen Ur Leukocyte Esterase Urine Microscopic RBC Ur Squamous Epith Cells Urine Bacteria Hyaline Casts Ur Culture Indicated? 3 07/30/18 02:49 WBC RBC Hgb Hct MCV MCH MCHC RDW Plt Count MPV Immature Gran % Seg Neutrophils % Band Neutrophils % Lymphocytes % Monocytes % Eosinophils % Basophils % Myelocytes % Neutrophils # Lymphocytes # Monocytes # Eosinophils # Basophils # Nucleated RBCs/100 WBC Toxic Granulation Platelet Estimate Immature Plt Fraction Polychromasia Anisocytosis Sodium Potassium Chloride Carbon Dioxide BUN Creatinine Est GFR ( Amer) Est GFR (Non-Af Amer) BUN/Creatinine Ratio Glucose POC Glucose 230 H Calculated Osmolality Calcium Magnesium Urine Color Urine Clarity Urine pH Ur Specific [place] Urine Protein Urine Glucose (UA) Urine Ketones Urine Blood Urine Nitrite Urine Bilirubin Urine Urobilinogen Ur Leukocyte Esterase Urine Microscopic RBC Ur Squamous Epith Cells Urine Bacteria Hyaline Casts Ur Culture Indicated? - Attending Attestation I have seen and examined Ms. Mahoney and agree with 's assessment. She was admitted with fatigue and dizziness. Exam is normal. MRI brain shows response to XRT with no measurable or new STAFF RN metastases. She feels better after hydration and desires discharge. Encouraged continued po fluid intake and ambulation prior to discharge, but hopefully may be discharged today or tomorrow from our perspective. Will keep f/u as scheduled with me. We will sign off. Inpatient Charges Provider: Dr. Eddi Boles Consult - Inpatient: [id number]
[2018-07-30] MEDS: Famotidine 20 MG TABLET PO SCH (23:21)
[2018-07-30] MEDS: rOPINIRole 0.25 MG TABLET PO SCH (23:21)
[2018-07-30] MEDS: Insulin DETEMIR 100 UNIT/ML X5UNITS SQ SCH (23:40)
[2018-07-31 05:40] LABS: Hematocrit 24.7 % (35.3-44.9); Hemoglobin 8.2 g/dL (11.5-15.4); Immature Platelets 7.7 % (1.1-6.1); Mean Corpuscular HGB Conc 33.2 g/dL (31.6-35.5); Mean Corpuscular Hemoglobin 34.2 pg (28.0-33.3); Mean Corpuscular Volume 102.9 fL (83.0-100.0); Mean Platelet Volume 11.4 fL (9.4-12.4); Nucleated Red Blood Cells 0.3 /100 WBC (0); Red Cell Distribution Width 13.9 % (11.5-14.5)
[2018-07-31 05:48] LABS: BUN/Creatinine Ratio 16 (6-26); Blood Urea Nitrogen 12 mg/dL (6-20); Calcium 9.2 mg/dL (8.6-10.3); Carbon Dioxide 26 mEq/L (23-29); Chloride 103 mEq/L (98-107); Glucose 223 mg/dL (70-105); Magnesium 1.5 mg/dL (1.6-2.6); Osmolality,Calculated 283 (280-300); Potassium 4.5 mEq/L (3.5-5.1); Sodium 133 mEq/L (136-145); eGFR For Non-African Americans > 60 (> 60)
[2018-07-31 06:52] LABS: Platelet Count 79 K/mcL (140-400)
[2018-07-31 07:57] LABS: Lymphocytes # 0.5 K/mcL (0.6-4.6); Monocytes # 0.5 K/mcL (0.0-1.3); Neutrophils # 6.8 K/mcL (1.6-8.9)
[2018-07-31 08:00] LABS: Anisocytosis 1+ (Not Present); Platelet Estimate Decreased (Normal)
[2018-07-31] MEDS: Sennosides 8.6 MG TABLET PO SCH ×2 (09:47→21:37)
[2018-07-31] MEDS: *HR* OxyCODONE ER (12 HR) 20 MG TABLET PO SCH ×2 (09:48→21:37)
[2018-07-31] MEDS: Insulin LISPRO 300 UNITS/3 ML VIAL SQ SCH ×4 (09:48→21:38)
--- NOTE | 2018-07-31 14:36 | Discharge Summary ---
<Mayra Mejia - Last Filed: 07/31/18 14:36> Date of Encounter: 07/31/18 - Discharge Diagnosis (1) Headache Status: Chronic Qualifiers: Headache type: unspecified Headache chronicity pattern: chronic headache Intractability: not intractable Qualified Code(s): R51 - Headache (2) Hypertension Status: Chronic Qualifiers: Hypertension type: essential hypertension Qualified Code(s): I10 - Essential (primary) hypertension (3) DVT prophylaxis Status: Acute (4) Type 2 diabetes mellitus Status: Acute Qualifiers: Diabetes mellitus [facility] insulin use: with terminal operations manager use Diabetes mellitus complication status: without complication Qualified Code(s): E11.9 - Type 2 diabetes mellitus without complications; Z79.4 - technician terminal and repeater (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 of insulin (5) Brain metastases Status: Chronic (6) Lightheadedness Status: Acute (7) Small cell lung cancer Status: Acute (8) BPPV (benign paroxysmal positional vertigo) Status: Suspected Qualifiers: Laterality: bilateral Qualified Code(s): H81.13 - Benign paroxysmal vertigo , bilateral (9) Meniere disease Status: Chronic Qualifiers: Laterality: right Qualified Code(s): H81.01 - Meniere's disease, right ear (10) Orthostatic hypotension Status: Suspected Hospital course: Ms. Mahoney is a 58 year old female - Time Spent with Patient Total time spent providing and/or coordinating discharge services: - Discharge Medications Home Medications: Gabapentin [Neurontin] 600 mg PO TID 09/26/16 [History] Atorvastatin [Lipitor] 40 mg PO HS 02/15/17 [History] Ropinirole HCl [Requip] 0.5 - 1 mg PO HS 02/15/17 [History] Acetaminophen [Tylenol] 500 mg PO Q6HR PRN #20 tablet 01/13/18 [Rx] Famotidine [Heartburn Prevention] 20 mg PO HS 04/14/18 [History] Omeprazole [PriLOSEC] 40 mg PO DAILY 04/14/18 [History] Dulaglutide [Trulicity] 1.5 mg SQ QWEEK 05/17/18 [History] Insulin LISPRO [HumaLOG] 10 - 12 units SQ TIDWM 05/17/18 [History] Sennosides [Senokot] 2 tab PO BID #120 tablet 05/27/18 [Rx] Promethazine [Phenergan] 25 mg PO Q6HR PRN #30 tablet 06/15/18 [Rx] Insulin Glargine,Hum.rec.anlog [Toujeo Solostar] 30 units SQ HS #5 insuln.pen [Rx] Ondansetron [Zofran] 8 mg PO Q8HR PRN #30 tablet 06/24/18 [Rx] Polyethylene Glycol 3350 [MiraLAX] 17 gm PO DAILY #1 bottle 07/15/18 [Rx] Levothyroxine [Synthroid] 150 mcg PO DAILY 07/30/18 [History] Oxycodone HCl 5 mg PO Q6H PRN 30 Days #120 tablet 07/30/18 [Rx] Oxycodone HCl [Oxycontin] 20 mg PO BID 30 Days #60 tab.er.12h 07/30/18 [Rx] Sertraline [Zoloft] 200 mg PO DAILY 07/30/18 [History] Allergies/Adverse Reactions: 3 Allergy/AdvReac Type Severity Reaction Status Date / Time ampicillin Allergy Difficulty Verified 07/06/18 11:21 Breathing Erythromycin Base Allergy Hives Verified 07/06/18 11:21 [From Erythrocin] Penicillins [PCN] Allergy Difficulty Verified 07/06/18 11:21 Breathing Tetracycline Allergy Hives Verified 07/06/18 11:21 ketorolac [From Toradol] AdvReac Migraine Verified 07/06/18 11:21 Date of admission: 07/30/18 01:00 Primary care physician: Luisa Israel MD Consults: 07/30/18 03:09 Consult to Nutrition [CONS] Routine Comment: Consulting Provider: NUTRITION Reason for Dietary Consult: PO Supplementation - Constitutional Vitals: Temp Pulse Resp BP Pulse Ox 98.0 F 74 15 114/72 92 07/31/18 14:09 07/31/18 14:09 07/31/18 14:09 07/31/18 14:09 07/31/18 14:09 General appearance: Present: A&O X 3, pleasant, no acute distress - Patient Status Condition: Undetermined - Discharge Instructions Follow Up With: Luisa Israel MD [Primary Care Provider] - <Fide Cuba - Last Filed: 07/31/18 16:06> Date of Encounter: 07/31/18 - Discharge Diagnosis (1) Headache Status: Chronic Qualifiers: Headache type: unspecified Headache chronicity pattern: chronic headache Intractability: not intractable Qualified Code(s): R51 - Headache (2) Hypertension Status: Chronic Qualifiers: Hypertension type: essential hypertension Qualified Code(s): I10 - Essential (primary) hypertension (3) DVT prophylaxis Status: Acute (4) Type 2 diabetes mellitus Status: Acute Qualifiers: Diabetes mellitus terminal operations manager insulin use: with terminal operations manager use Diabetes mellitus complication status: without complication Qualified Code(s): E11.9 - Type 2 diabetes mellitus without complications; Z79.4 - technician terminal and repeater (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 of insulin (5) Brain metastases Status: Chronic (6) Lightheadedness Status: Acute (7) Small cell lung cancer Status: Acute (8) BPPV (benign paroxysmal positional vertigo) Status: Suspected Qualifiers: Laterality: bilateral Qualified Code(s): H81.13 - Benign paroxysmal vertigo , bilateral (9) Meniere disease Status: Chronic Qualifiers: Laterality: right Qualified Code(s): H81.01 - Meniere's disease, right ear (10) Orthostatic hypotension Status: Suspected Hospital course: Ms. Mahoney is a 58 year old female - Time Spent with Patient Total time spent providing and/or coordinating discharge services: Date of admission: 07/30/18 01:00 Primary care physician: Luisa Israel MD Consults: 07/30/18 03:09 Consult to Nutrition [CONS] Routine Comment: Consulting Provider: NUTRITION Reason for Dietary Consult: PO Supplementation - Constitutional Vitals: Temp Pulse Resp BP Pulse Ox 98.0 F 74 15 114/72 92 07/31/18 14:09 07/31/18 14:09 07/31/18 14:09 07/31/18 14:09 07/31/18 14:09 - Attending Attestation I examined this patient and my medical decision-making was reviewed with the Resident Physician Dr Mejia. I agree with the documented findings, disposition and treatment plan as described except to the extent set forth below/addl details as below. Ms Mahoney was admitted for dizziness and presyncope. She is currently undergoing chemotherapy for lung cancer with cerebellar brain mets which imaging this admission show have appeared to resolve, with chronic headache and on dexamethasone at home. Her presenting symptoms were found to be most likely from poor oral intake, medication s/e, low to low normal bps on home antihypertensive and BPPV with hx meniere disease. Oncology followed. No new brain findings to suspect symptoms were related to brain mets. She has anemia and thrombocytopenia, in setting of active chemo treatment. Thsi was reviewed by Onc and they will fu outpt. No active bleeding or signs of bleeding on ROS. Awake, less fatigued, feeling back to baseline. Eating and drinkign without issue with improved appetite. No dizziness, lightheadedness or weakness. Ambualting now without any difficulty. gen- alert, awake,appears stated age cv- reg rate and rhythm, normal s1,s2, no murmurs appreciated, no le edema lungs- ctabl, no wheezing, rhonchi or crackles, diminished posteriorly abd- soft, non tender, non distended, + bs neuro- AAOx3 Presyncope most likely multifactorial- BPPV and Hx Meniere Disease, poor oral intake and suspect, given description of exacerbating factors, suspect had orthostatic hypotension (orthostats taken after ivfs given) -ua and CXR neg, no wbc elevation ,no fevers here--did not appear to be infectious cause -CT head and MRI brain no longer identify previous brain mets, no acute infarct or mass effect -+ rupesh hallpike -prn meclizine Headache most likely 2/2 brain mets and poor oral intake, now resolved -CT head and MRI as above -dexamethasone outpt as per onc -oncology followed Small Cell Lung Ca with previously identified Brain Mets -care as per oncology -last chemo 07/24, fu outpt Thrombocytopenia, Anemia in setting of chemotherapy and cancer as above, wbc 6.4 , oncology aware -no active bleeding, scds for vte ppx + ambulation given risk vs benefit of lovenox vte ppx with brain met hx -fu with oncology outpt will recheck hgb, plts at that time 07/31 UPDATE late entry --plan was to dc to home but pt then had complaint of vision change and feeling dizzy. Oncology at bedside and rec to monitor overnight, will check repeat hgb, schedule meclizine and fu further oncology recs
--- NOTE | 2018-07-31 15:34 | Oncology Inp Progress Note ---
Date of Encounter: 07/31/18 Time of Encounter: 15:00 (1) Small cell lung cancer Current Visit: Yes Status: Acute Assessment and plan: Whole brain radiotherapy completed 06/08/2018 S/P cycle #2, Day 1 Carboplatin/Etoposide 07/15/2018 Cytopenias likely secondary to therapy, no neutropenia She has had a positive radiographic response to treatment. Plan to continue with treatment as scheduled on an outpatient basis (2) BPPV (benign paroxysmal positional vertigo) Current Visit: Yes Status: Suspected Assessment and plan: Likely multifactorial- BPPV and Hx Meniere Disease, dehydration, orthostatic hypotension CT head and brain MRI negative for acute findings or metastatic disease, she has had a positive radiographic response to brain radiotherapy Plan: If patients symptoms continue to improve and she remains medically stable likely expect discharge within next day or so per primary teams discretion Encouraged PO intake and activity as tolerated Her symptoms do not appear to be related to malignancy, her brain MRI is encouraging of this, but may be exacerbated by her dehydration secondary to chemotherapy as discussed above Continue with supportive management Patient feels improvement but feels as though she could use another day to recover, hospitalist team updated with patients request and clinical update. She was given an appointment information for a follow up with treatment with Dr. Boles next week. Qualifiers: Laterality: bilateral Qualified Code(s): H81.13 - Benign paroxysmal vertigo , bilateral Oncology: Subj Interval history: Ms. Mahoney is resting comfortably. She currently denies pain, SOB, cough, s/s bleeding, constipation, diarrhea or headache. She states her vertigo has improved but she is not feeling well enough to go home today. She states she has felt intermittently confused at times. She is currently alert and oriented x4 and in no apparent distress. She has no focal weakness or neurological deficit upon exam. She states she feels "foggy" today. She reports mild chills, no fevers. She also reports an increase in urinary frequency, no burning with urination. We will check a UA. She has good bowel/bladder function and has been ambulating to the bathroom without much difficulty. - Constitutional Vitals: Vital Signs Temp Pulse Resp BP Pulse Ox 07/31/18 14:09 98.0 F 74 15 114/72 92 07/31/18 10:39 98.0 F 71 16 97/60 93 07/31/18 08:45 91 07/31/18 06:45 98.0 F 86 15 106/70 91 07/31/18 02:41 97.8 F 72 16 103/69 93 07/30/18 20:01 95 07/30/18 19:48 98.4 F 81 15 99/63 95 Intake and Output 07/30/18 07/31/18 07/31/18 23:59 07:59 15:59 Intake Total 240 / 240 1000 / 1000 640 / 640 Output Total 0 / 0 Balance 240 / 240 1000 / 1000 640 / 640 Intake: IV Fluids 1000 / 1000 Lactated Ringers 1,000 ML @ 100 1000 / 1000 mls/hr IVC .Q10H JESSY Rx#: [id number] Oral 240 / 240 0 / 0 640 / 640 Output: Urine 0 / 0 Other: Meal Dinner Lunch Percent of Meal Consumed 100% 5% # Voids 3 1 2 Weight 80.1 kg Blood Glucose* 280 243 335 Patient Weight 07/31/18 23:59 Weight 80.1 kg General appearance: cooperative, no acute distress, no febrile - Head Head exam: Present: atraumatic - ENT ENT exam: Present: mucous membranes moist - Respiratory Respiratory exam: Present: CTAB. Absent: respiratory distress - Cardiovascular Cardiovascular exam: Present: RRR, +S1, +S2 - GI/Abdominal GI/Abdominal exam: Present: normal bowel sounds, soft. Absent: guarding, rebound, tenderness - Extremities Exam Extremities exam: Present: normal inspection. Absent: calf tenderness - Neurological Exam Neurological exam: Present: alert, oriented X3, no focal deficits, strengths equal and symetr throughout - Psychiatric Psychiatric exam: Present: normal affect, normal mood - Skin Skin exam: Present: dry, intact, normal color, warm Oncology: Obj Data - Labs CBC & Chem 7: 07/31/18 15:49 07/31/18 04:08 - ABG Interpretation ABG results: PT/INR, D-dimer PT 12.2 Seconds (9.4-12.1) H 07/29/18 21:29 Consult Discharge Plan - Plan Referrals: Luisa Israel MD [Primary Care Provider] - Inpatient Charges Provider: Kimmie Marsh CNP Follow up - Inpatient: [id number]
[2018-07-31 16:05] LABS: Hemoglobin 8.8 g/dL (11.5-15.4)
--- NOTE | 2018-07-31 17:40 | Internal Med Progress Note ---
<Mayra Mejia - Last Filed: 07/31/18 19:01> Hospitalist Progress Note - Encounter Date of Encounter: 07/31/18 Time of Encounter: 09:40 - Subjective Interval History: Ms. Mahoney was seen at bedside this morning. She was comfortable in bed and stated her dizziness mostly resolved. She recently had her second round of chemotherapy on 07/24/19. Her vitals were within normal limits overnight and was 103/69 to 114/72 and laboratory study showed a decrease in hemoglobin from 11.2 to 9.2 to 8.2 this morning. A repeat hemoglobin was 8.8 this afternoon. Her platelet count at admission was 66 and today was 79. Her magnesium was 1.5 this morning and was replaced. She is now tolerating diet without any nausea or emesis. She is not having any difficulty urinating or with bowel movements. Yesterday she also elicited history of blurry vision after starting radiation to her head but has been unchanged since the occurrence of dizziness. Cranial nerves II-X were intact today. She denied fever, chills, emesis, shortness of breath, chest pain, dysuria or abdominal pain. - Exam Vitals: Temp Pulse Resp BP Pulse Ox 98.0 F 74 15 114/72 92 07/31/18 14:09 07/31/18 14:09 07/31/18 14:09 07/31/18 14:09 07/31/18 14:09 Exam: Constitutional: Alert, in no acute distress, sitting up and comfortable in bed HEENT: hair loss due to chemotherapy, normocephalic, atraumatic, moist mucus membrane, moist mucus membrane Heart: Normal, regular rate and rhythm, no murmurs Lungs: lungs clear and equal bilaterally Abdomen: Soft, non distended, non tender, no rebound or guarding Extremities: no edema, no rashes Skin: Skin warm and dry, no lesions, no rashes, no jaundice Psych: thought content congruent, appropriate affect Neurological Alert and oriented x 3 - Assessment and Plan (1) Headache Current Visit: No Status: Chronic Assessment and Plan: Resolved today. Chronic for her, slightly worse over the last several days. She states it is been present since she was initially diagnosed with lung cancer with brain metastasis. Given that is worse there is a concern for worsening metastatic disease to the brain. No focal neurologic deficits noted. CT of the head was unremarkable. This afternoon she was rechecked because she complained of having less energy. She was awake, alert and oriented to person, place and time. Plan: MRI brain with and without contrast: No acute infarct, intracranial hemorrhage, or significant mass effect. Mild amount of chronic small vessel ischemic white matter disease and diffuse cerebral volume loss. Continue patient's home pain regimen Continue diet Promethazine for nausea Continue to monitor glucose (2) Hypertension Current Visit: No Status: Chronic Assessment and Plan: Chronic. Patient hypertensive on arrival, likely due to dehydration and hypovolemia. Currently blood pressure is stable and today it has been 103/69 to 114/72. Plan: Continue oral diet Hold home antihypertensives for now (3) Type 2 diabetes mellitus Current Visit: No Status: Acute Assessment and Plan: History of diabetes. Blood sugars mildly elevated on presentation and today remains elevated. It may be related to her nutritional supplements. Plan: Sliding scale insulin with moderate coverage Restart her long-acting insulin at 30 units Closely monitor blood sugars and adjust based on readings. (4) Brain metastases Current Visit: Yes Status: Chronic (5) Lightheadedness Current Visit: Yes Status: Acute Assessment and Plan: Improved. Possibly was volume depleted because this morning her symptoms had improved significantly. She had presented with lightheadedness and presyncope symptoms likely due to BPPV vs. postural hypotension vs dehydration vs. vascular disease vs. brain metastasis vs chemotherapy induced. Mildly hypertensive on arrival but responded well to fluids. She is going to the bathroom to urinate and having no difficulty urinating Magnesium was low but has been replaced. Patient received 2 liters bolus in the emergency department. Plan: Having good oral intake, continue diet Brain MRI negative for any mass (6) Small cell lung cancer Current Visit: Yes Status: Acute Assessment and Plan: Extensive stage with brain metastasis. Diagnosed 05/17/18. Underwent whole brain radiotherapy on 06/08/18. Recently completed cycle 2 of carboplatin and etoposide on 07/15/18. Per patient's report she has been tolerating this well other than some fatigue. Plan: Oncology has been consulted They recommended stopping decadron (7) BPPV (benign paroxysmal positional vertigo) Current Visit: Yes Status: Suspected Assessment and Plan: This morning her dizziness had improved. At admission she stated her dizziness started three day ago and is described as feeling of "lightheadedness" when moving from a sitting position to standing. She denied a sensation of the headache when she was sitting still in bed. Upon examination, Rupesh Hallpike maneuver was performed and was positive for nystagmus of bilateral eyes. Later this afternoon she complained of dizziness that returned. She denied nausea or emesis. Plan: CT head negative MRI brain to rule out vascular causes Low salt diet Meclizine BID Continue to monitor (8) Meniere disease Current Visit: Yes Status: Chronic Assessment and Plan: She has history of meniere disease. She also recently had brain radiation and feels fullness in her right ear. She also feels a sensation of tinnitus in her right ear. She stated some of the symptoms seems similar to her previous episode of meniere disease but the positional dizziness is new. Plan: Low salt diet MRI is negative, no mass visualized Continue phenergan Orthostatics to rule out postural hypotension (9) DVT prophylaxis Current Visit: No Status: Acute Assessment and Plan: EPCDs for now given brain mets (10) Orthostatic hypotension Current Visit: Yes Status: Suspected Assessment and Plan: Suspected at admission as she was becoming dizzy due to movement from seated to standing position. Recent onset of dizziness with positional changes. Her diet has been poor since 07/24/18 when she received her last dose of chemotherapy. Orthostatics were negative but she did receive 2 liters of fluid. Plan: Continue oral diet Orthostatics by nursing were negative Continue to monitor blood pressure - Time Spent with Patient Total time spent is greater than 50% in coordination of care (as documented) at patient's floor/unit and/or counseling patient: 25 - 35 minutes Plan of Care Discussed with: patient Internal Medicine: Result - Labs CBC & Chem 7: 07/31/18 15:49 07/31/18 04:08 Labs: Short CBC 07/31/18 07/31/18 Range/Units 04:08 15:49 WBC 7.9 (4.3-11.1) K/mcL Hgb 8.2 L 8.8 L (11.5-15.4) g/dL Hct 24.7 L 26.0 L (35.3-44.9) % Plt Count 79 L (140-400) K/mcL Neutrophils # 6.8 (1.6-8.9) K/mcL BMP 07/31/18 04:08 Sodium 133 L Potassium 4.5 Chloride 103 Carbon Dioxide 26 BUN 12 Creatinine 0.74 Glucose 223 H Calcium 9.2 - ABG Interpretation ABG results: PT/INR, D-dimer PT 12.2 Seconds (9.4-12.1) H 07/29/18 21:29 Consult Discharge Plan - Plan Referrals: Luisa Israel MD [Primary Care Provider] - <Fide [place] - Last Filed: 08/01/18 06:57> Hospitalist Progress Note - Encounter Date of Encounter: 08/01/18 - Exam Vitals: Temp Pulse Resp BP Pulse Ox 97.9 F 68 16 124/80 93 08/01/18 06:45 08/01/18 06:45 08/01/18 06:45 08/01/18 06:45 08/01/18 06:45 - Assessment and Plan (1) Headache Current Visit: No Status: Chronic (2) Hypertension Current Visit: No Status: Chronic (3) DVT prophylaxis Current Visit: No Status: Acute (4) Type 2 diabetes mellitus Current Visit: No Status: Acute (5) Brain metastases Current Visit: Yes Status: Chronic (6) Lightheadedness Current Visit: Yes Status: Acute (7) Small cell lung cancer Current Visit: Yes Status: Acute (8) BPPV (benign paroxysmal positional vertigo) Current Visit: Yes Status: Suspected (9) Meniere disease Current Visit: Yes Status: Chronic (10) Orthostatic hypotension Current Visit: Yes Status: Suspected - Time Spent with Patient Total time spent is greater than 50% in coordination of care (as documented) at patient's floor/unit and/or counseling patient: Internal Medicine: Result - Labs CBC & Chem 7: 08/01/18 00:54 08/01/18 00:54 Labs: Short CBC 07/31/18 07/31/18 08/01/18 Range/Units 04:08 15:49 00:54 WBC 7.9 12.4 H D (4.3-11.1) K/mcL Hgb 8.2 L 8.8 L 8.1 L (11.5-15.4) g/dL Hct 24.7 L 26.0 L 24.3 L (35.3-44.9) % Plt Count 79 L 105 L (140-400) K/mcL Neutrophils # 6.8 8.2 (1.6-8.9) K/mcL BMP 08/01/18 00:54 Sodium 135 L Potassium 4.2 Chloride 102 Carbon Dioxide 28 BUN 15 Creatinine 0.86 Glucose 175 H Calcium 9.2 Urine 07/31/18 Range/Units 18:32 Urine Color Yellow (Yellow) Urine Clarity Slightly Hazy (Clear) Urine pH 5.5 (5.0-8.0) pH Units Ur Specific [employer] [place] 1.008 L (1.010-1.025) Urine Protein Negative (Neg-Trace) mg/dL Urine Glucose (UA) Normal (Normal) mg/dL - ABG Interpretation ABG results: PT/INR, D-dimer PT 12.2 Seconds (9.4-12.1) H 07/29/18 21:29 - Attending Attestation Attending attestation for 07/31/18 was added to discharge summary for the day. Discharge was canccelled for complaint of blurry vision and dizziness with med changes change and pt kept overnight for further monitoring. I did see pt as was previously documented in that now cancelled note. Details are here below I examined this patient and my medical decision-making was reviewed with the Resident Physician Dr Mejia. I agree with the documented findings, disposition and treatment plan as described except to the extent set forth below/addl details as below. Ms Mahoney was admitted for dizziness and presyncope. She is currently undergoing chemotherapy for lung cancer with cerebellar brain mets whihc appear to have resolved on MRI imaging here, with chronic headache, on dexamethasone at home. Awake, feeling much improved. feels abck to baseline. denies dizziness, presyncope. eating and drinking without difficulty. no sob, fatigue, cp. gen- alert, awake,appears stated age eyes- pupils equal round , eom intact, no conjunctival pallor cv- reg rate and rhythm, normal s1,s2, no murmurs appreciated, no le edema lungs- ctabl, no wheezing, rhonchi or crackles,normal resp effort on ra neuro- AAOx3, CN grossly intact, no focal deficits Presyncope most likely multifactorial- BPPV and Hx Meniere Disease, poor oral intake and suspect, given description of exacerbating factors, orthostatic hypotension, known cerebellar mets appear to have resolved on imaging and are not likely contributing per oncology -ua and CXR neg, no wbc elevationthus far this admission, though on chemo, no fevers here--not suspecting infectious cause at this time -CT head and MRI brain no longer identify previous brain mets, no acute infarct or mass effect -s/p IVFs encourage oral intake -+ rupesh posadake -meclizine if no improvement with rehydration -pt reports she is ambulating without difficulty Headache most likely 2/2 brain mets and poor oral intake -CT head and MRI as above -cont dexamethasone -oncology following Small Cell Lung Ca with previously identified Brain Mets -care as per oncology -last chemo 07/24 Thrombocytopenia, Anemia in setting of chemotherapy and cancer as above -no active bleeding, monitoring for stability, drop in hgb d/w oncology and may be related to treatment, they will cont to follow it outpt, scds for vte ppx + ambulation given risk vs benefit of lovenox vte ppx with brain met hx discharge was help for further monitoring with late day report of blurred vision and dizziness with oncology at bedside. meclizine was ordered standing and hgb was checked and stable <Mayra Mejia - Last Filed: 07/31/18 19:01> (1) Headache Qualifiers: Headache type: unspecified Headache chronicity pattern: chronic headache Intractability: not intractable Qualified Code(s): R51 - Headache (2) Hypertension Qualifiers: Hypertension type: essential hypertension Qualified Code(s): I10 - Essential (primary) hypertension (3) Type 2 diabetes mellitus Qualifiers: Diabetes mellitus half-way insulin use: with web analytics developer use Diabetes mellitus complication status: without complication Qualified Code(s): E11.9 - Type 2 diabetes mellitus without complications; Z79.4 - 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 (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 of insulin (7) BPPV (benign paroxysmal positional vertigo) Qualifiers: Laterality: bilateral Qualified Code(s): H81.13 - Benign paroxysmal vertigo, bilateral (8) Meniere disease Qualifiers: Laterality: right Qualified Code(s): H81.01 - Meniere's disease, right ear <Fide [place] - Last Filed: 08/01/18 06:57> (1) Headache Qualifiers: Headache type: unspecified Headache chronicity pattern: chronic headache Intractability: not intractable Qualified Code(s): R51 - Headache (2) Hypertension Qualifiers: Hypertension type: essential hypertension Qualified Code(s): I10 - Essential (primary) hypertension (4) Type 2 diabetes mellitus Qualifiers: Diabetes mellitus web analytics developer insulin use: with web analytics developer use Diabetes mellitus complication status: without complication Qualified Code(s): E11.9 - Type 2 diabetes mellitus without complications; Z79.4 - 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 (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 of insulin (8) BPPV (benign paroxysmal positional vertigo) Qualifiers: Laterality: bilateral Qualified Code(s): H81.13 - Benign paroxysmal vertigo, bilateral (9) Meniere disease Qualifiers: Laterality: right Qualified Code(s): H81.01 - Meniere's disease, right ear
[2018-07-31 18:45] LABS: Bilirubin,Urine Negative (Negative); Blood,Urine Negative (Negative); Color,Urine Yellow (Yellow); Glucose,Urine (UA) Normal (Normal); Ketones,Urine Negative (Negative); Leukocyte Esterase,Urine Negative (Negative); Nitrite,Urine Negative (Negative); PH,Urine 5.5 pH Units (5.0-8.0); Protein,Urine Negative (Neg-Trace); Specific Gravity,Urine 1.008 (1.010-1.025); Urobilinogen,Urine Normal (Normal)
[2018-07-31 18:46] LABS: Bacteria,Urine None Seen per hpf (None-Few); Hyaline Casts,Urine None Seen per lpf (None-Few); Squamous Epithelial Cell,Urine Many per lpf (None-Few)
[2018-07-31 18:49] LABS: Clarity,Urine Slightly Hazy (Clear)
[2018-07-31] MEDS: rOPINIRole 0.25 MG TABLET PO SCH (21:37)
[2018-07-31] MEDS: Famotidine 20 MG TABLET PO SCH (21:37)
[2018-07-31] MEDS: Insulin DETEMIR 100 UNIT/ML X5UNITS SQ SCH (21:38)
[2018-08-01 01:32] LABS: Basophils # 0.1 K/mcL (0.0-0.2); Basophils % 0.6 %; Hematocrit 24.3 % (35.3-44.9); Hemoglobin 8.1 g/dL (11.5-15.4); Immature Granulocytes % 22.6 % (0-4); Lymphocytes # 0.6 K/mcL (0.6-4.6); Lymphocytes % 4.5 %; Mean Corpuscular HGB Conc 33.3 g/dL (31.6-35.5); Mean Corpuscular Hemoglobin 34.2 pg (28.0-33.3); Mean Corpuscular Volume 102.5 fL (83.0-100.0); Mean Platelet Volume 10.5 fL (9.4-12.4); Monocytes # 0.8 K/mcL (0.0-1.3); Monocytes % 6.4 %; Neutrophils # 8.2 K/mcL (1.6-8.9); Nucleated Red Blood Cells 0.6 /100 WBC (0); Platelet Count 105 K/mcL (140-400); Red Blood Count 2.37 M/mcL (3.82-4.97); Red Cell Distribution Width 14.3 % (11.5-14.5); Segmented Neutrophils % 65.9 %
[2018-08-01 01:57] LABS: BUN/Creatinine Ratio 17 (6-26); Blood Urea Nitrogen 15 mg/dL (6-20); Calcium 9.2 mg/dL (8.6-10.3); Carbon Dioxide 28 mEq/L (23-29); Chloride 102 mEq/L (98-107); Glucose 175 mg/dL (70-105); Magnesium 1.6 mg/dL (1.6-2.6); Osmolality,Calculated 285 (280-300); Potassium 4.2 mEq/L (3.5-5.1); Sodium 135 mEq/L (136-145); eGFR For Non-African Americans > 60 (> 60)
[2018-08-01 02:21] LABS: Platelet Estimate Slight Decrease (Normal); Toxic Granulation Present (Not Present)
[2018-08-01] MEDS: Insulin LISPRO 300 UNITS/3 ML VIAL SQ SCH (09:38)
[2018-08-01] MEDS: Sennosides 8.6 MG TABLET PO SCH (09:39)
[2018-08-01] MEDS: *HR* OxyCODONE ER (12 HR) 20 MG TABLET PO SCH (09:39)
--- NOTE | 2018-08-01 11:15 | Discharge Summary ---
<Parker Mccall - Last Filed: 08/01/18 11:12> - NOTES TO OUTPATIENT PROVIDER Notes to Outpatient Provider: Please follow up with her primary care physician as well as oncologist within 1 week. Take all medications as prescribed including the dexamethasone until Friday. Please call your oncologist Friday for further instructions. Return to the emergency room with any worsening of symptoms including lightheadedness dizziness, feelings of passing out, palpitations or chest pain. Date of Encounter: 08/01/18 Time of Encounter: 09:20 - Discharge Diagnosis (1) Lightheadedness Priority: Primary Status: Acute Assessment and Plan: Most likely diagnosis at this time is orthostatic hypotension makes with possible BPPV in the setting of known history of Meniere's disease. Patient's symptoms have resolved and she will follow up with her primary care physician with a prescription of Antivert. She was also instructed to increase fluid intake. (2) Headache Priority: Secondary Status: Chronic Qualifiers: Headache type: unspecified Headache chronicity pattern: chronic headache Intractability: not intractable Qualified Code(s): R51 - Headache (3) Hypertension Priority: Secondary Status: Chronic Qualifiers: Hypertension type: essential hypertension Qualified Code(s): I10 - Essential (primary) hypertension (4) DVT prophylaxis Priority: Secondary Status: Acute (5) Type 2 diabetes mellitus Priority: Secondary Status: Chronic Qualifiers: Diabetes mellitus terminal supervisor insulin use: with terminal supervisor use Diabetes mellitus complication status: without complication Qualified Code(s): E11.9 - Type 2 diabetes mellitus without complications; Z79.4 - jail (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 of insulin (6) Brain metastases Priority: Secondary Status: Chronic (7) Small cell lung cancer Priority: Secondary Status: Acute (8) BPPV (benign paroxysmal positional vertigo) Priority: Secondary Status: Chronic Qualifiers: Laterality: bilateral Qualified Code(s): H81.13 - Benign paroxysmal vertigo , bilateral (9) Meniere disease Priority: Secondary Status: Chronic Qualifiers: Laterality: right Qualified Code(s): H81.01 - Meniere's disease, right ear (10) Orthostatic hypotension Priority: Secondary Status: Suspected Hospital course: Ms. Mahoney is a 58 year old female with a known history of metastatic lung cancer to the brain, type 2 diabetes, hyperlipidemia, hypertension who presented to the emergency department with complaint of dizziness. Symptoms onset approximately 3 days before presentation. She describes a feeling of lightheadedness at times like she was going to pass out. Symptoms worsen when rising from a chair. She is currently receiving chemotherapy at the [facility] and most recent chemotherapy was the week previous. Patient does have an also history of Meniere's disease with BPPV and admits to poor oral intake over the last couple weeks secondary to her chemotherapy. On presentation to the emergency room, vitals were significant for a heart rate of 94, blood pressure 82/45. Laboratory results showed an anemia which is mildly worsened from baseline, thrombocytopenia of 66, magnesium of 1.5. There was concern for relationship of metastasis to the brain and CT of the head was obtained which showed no acute intracranial abnormalities without evidence of vasogenic edema. Oncology was consult and who recommended Decadron 3 times daily and brain MRI was also obtained. MRI results showed no concerning evidence for enhancing lesions and previously seen enhancing lesions are no longer identified. Mild amount of chronic small vessel ischemic white matter disease. EKG did show normal sinus rhythm with rate of 89. She admitted to the hospital for further evaluation and management of presyncopal episode with headache and cancer. Over the course of hospital stay, patient did gradually improve. Her symptoms of lightheadedness did resolve with the assistance of IV fluids. She received Decadron as well as Antivert. At this time, presyncope was most likely multifactorial with evidence of benign positional paroxysmal vertigo as well as history of Meniere disease in addition to poor oral oral intake which may contribute to orthostatic hypotension. Of note, orthostatic vital signs were negative however this was after patient did receive intravenous fluids. Oncology was consulted during hospital stay and that did evaluate the patient with recommendations to continue Decadron until Friday at which time she should contact oncology office for further recommendations. This was instructed to the patient and she did force understanding. Her lab results continue to remain stable with thrombocytopenia and anemia likely secondary to her chemotherapy and cancer. Patient did have an episode of blurry vision as well as dizziness on day previous to discharge which she states has happened in the past secondary to her brain radiation. She was monitored for an additional day on day of discharge she states that she has returned to her baseline and is eager to return home. Vitals and labs as mentioned above are unremarkable except for a WBC elevation of 12.4 which is expected with administration of steroids. Blood cultures show no growth and she has no white count elevation. She will be discharged home in stable medical condition with instructions to follow up with her primary care physician as well as oncology. She was discharged home with a prescription for Antivert as it did improve her symptoms as well as Decadron and a refill on her Percocet 3 days until she can communicate with her oncologist. All questions were answered and she was instructed to return to the emergency department with any worsening or return of symptoms. Discharge discussed with: patient, nurse, reporting process consultant - Time Spent with Patient Total time spent providing and/or coordinating discharge services: - Discharge Medications Prescriptions: Dexamethasone [Decadron] 4 mg PO TID 4 Days #12 tab Meclizine [Antivert] 12.5 mg PO BID #10 tablet Oxycodone HCl/Acetaminophen [Percocet 5-325 mg Tablet] 1 each PO Q6H PRN 3 Days #12 tablet PRN Reason: Breakthrough Pain Home Medications: Gabapentin [Neurontin] 600 mg PO TID 09/26/16 [History] Atorvastatin [Lipitor] 40 mg PO HS 02/15/17 [History] Ropinirole HCl [Requip] 0.5 - 1 mg PO HS 02/15/17 [History] Acetaminophen [Tylenol] 500 mg PO Q6HR PRN #20 tablet 01/13/18 [Rx] Famotidine [Heartburn Prevention] 20 mg PO HS 04/14/18 [History] Omeprazole [PriLOSEC] 40 mg PO DAILY 04/14/18 [History] Dulaglutide [Trulicity] 1.5 mg SQ QWEEK 05/17/18 [History] Insulin LISPRO [HumaLOG] 10 - 12 units SQ TIDWM 05/17/18 [History] Sennosides [Senokot] 2 tab PO BID #120 tablet 05/27/18 [Rx] Promethazine [Phenergan] 25 mg PO Q6HR PRN #30 tablet 06/15/18 [Rx] Insulin Glargine,Hum.rec.anlog [Toujeo Solostar] 30 units SQ HS #5 insuln.pen [Rx] Ondansetron [Zofran] 8 mg PO Q8HR PRN #30 tablet 06/24/18 [Rx] Polyethylene Glycol 3350 [MiraLAX] 17 gm PO DAILY #1 bottle 07/15/18 [Rx] Levothyroxine [Synthroid] 150 mcg PO DAILY 07/30/18 [History] Oxycodone HCl 5 mg PO Q6H PRN 30 Days #120 tablet 07/30/18 [Rx] Oxycodone HCl [Oxycontin] 20 mg PO BID 30 Days #60 tab.er.12h 07/30/18 [Rx] Sertraline [Zoloft] 200 mg PO DAILY 07/30/18 [History] Dexamethasone [Decadron] 4 mg PO TID 4 Days #12 tab 08/01/18 [Rx] Meclizine [Antivert] 12.5 mg PO BID #10 tablet 08/01/18 [Rx] Oxycodone HCl/Acetaminophen [Percocet 5-325 mg Tablet] 1 each PO Q6H PRN 3 Days #12 tablet 08/01/18 [Rx] Allergies/Adverse Reactions: 3 Allergy/AdvReac Type Severity Reaction Status Date / Time ampicillin Allergy Difficulty Verified 07/06/18 11:21 Breathing Erythromycin Base Allergy Hives Verified 07/06/18 11:21 [From Erythrocin] Penicillins [PCN] Allergy Difficulty Verified 07/06/18 11:21 Breathing Tetracycline Allergy Hives Verified 07/06/18 11:21 ketorolac [From Toradol] AdvReac Migraine Verified 07/06/18 11:21 Date of admission: 07/30/18 01:00 Primary care physician: Luisa Israel MD Consults: 07/30/18 03:09 Consult to Nutrition [CONS] Routine Comment: Consulting Provider: NUTRITION Reason for Dietary Consult: PO Supplementation Discharging clinician: Parker Mccall Anticipated date of discharge: 08/01/18 - Constitutional Vitals: Temp Pulse Resp BP Pulse Ox 97.9 F 68 16 124/80 93 08/01/18 06:45 08/01/18 06:45 08/01/18 06:45 08/01/18 06:45 08/01/18 06:45 General appearance: Present: A&O X 3, pleasant, no acute distress Exam: Gen.: Vitals noted. No acute distress. AAOx3, resting comfortably in bed HEENT: PERRL/EOMI, oropharynx clear, Normocephalic, atraumatic, MMM Cardiac: RRR, no murmur, +S1/S2 Pulmonary: CTA bilaterally, no wheezes, rales or rhonchi, equal chest expansion Abdomen: soft, nontender, BS noted, no guarding, no rebound. Extremities: no BLE edema, nontender calf, no cyanosis or clubbing Neuro: A&Ox3, moves all extremities, no focal deficits Psych: Appropriate mood and behavior - Patient Status Disposition: Home, Self-Care Condition: Good Functional capacity at discharge: uses cane/walker Overall status at discharge: patient is back to baseline - Discharge Instructions Instructions: Oxycodone/Acetaminophen (By mouth), Meclizine (By mouth), Dexamethasone (By mouth) Follow Up With: Luisa Israel MD [Primary Care Provider] - Additional Instructions: Please follow with her primary care physician within 5 days. Please also call your oncologist on Friday for further instructions regarding her care plan. Return to the emergency room with any return or worsening of symptoms. - Diet and Activity Activity: increase activity as tolerated, return to work once cleared by your PCP/specialist, resume usual activities as tolerated Diet: advance to your usual diet <Fide [place] - Last Filed: 08/01/18 12:50> Date of Encounter: 08/01/18 - Discharge Diagnosis (1) Headache Status: Chronic Qualifiers: Headache type: unspecified Headache chronicity pattern: chronic headache Intractability: not intractable Qualified Code(s): R51 - Headache (2) Hypertension Status: Chronic Qualifiers: Hypertension type: essential hypertension Qualified Code(s): I10 - Essential (primary) hypertension (3) DVT prophylaxis Status: Acute (4) Type 2 diabetes mellitus Status: Chronic Qualifiers: Diabetes mellitus mcfp insulin use: with mcfp use Diabetes mellitus complication status: without complication Qualified Code(s): E11.9 - Type 2 diabetes mellitus without complications; Z79.4 - jail (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 of insulin (5) Brain metastases Status: Chronic (6) Lightheadedness Status: Acute (7) Small cell lung cancer Status: Acute (8) BPPV (benign paroxysmal positional vertigo) Status: Chronic Qualifiers: Laterality: bilateral Qualified Code(s): H81.13 - Benign paroxysmal vertigo , bilateral (9) Meniere disease Status: Chronic Qualifiers: Laterality: right Qualified Code(s): H81.01 - Meniere's disease, right ear (10) Orthostatic hypotension Status: Suspected Hospital course: Ms. Mahoney is a 58 year old female - Time Spent with Patient Total time spent providing and/or coordinating discharge services: Date of admission: 07/30/18 01:00 Primary care physician: Luisa Israel MD Consults: 07/30/18 03:09 Consult to Nutrition [CONS] Routine Comment: Consulting Provider: NUTRITION Reason for Dietary Consult: PO Supplementation - Constitutional Vitals: Temp Pulse Resp BP Pulse Ox 98.0 F 79 16 123/78 98 08/01/18 11:27 08/01/18 11:27 08/01/18 11:27 08/01/18 11:27 08/01/18 11:27 - Attending Attestation I examined this patient and my medical decision-making was reviewed with the Resident Physician Dr Mccall. I agree with the documented findings, disposition and treatment plan as described except to the extent set forth below /addl details as below. Ms Mahoney was admitted for dizziness and presyncope. She is currently undergoing chemotherapy for lung cancer with cerebellar brain mets which appear to have resolved on MRI imaging here, with chronic headache, on dexamethasone at home as needed. Agree with her hospital course as documented by resident Awake, feeling at baseline. Ambualting within room this morning, no dizziness or ligthheadedness. Notes that vision changes are usual for her since brain radiation and there is no change from her baseline. Eager to dc to home today. Discharge plan and instructions confirmed with diamond powder technician oncology Dr Alegria and communicated to pt. She dneies any evidence of bleeding. gen- alert, awake,appears stated age, nad eyes- pupils equal round , eom intact, no conjunctival pallor cv- reg rate and rhythm, normal s1,s2, no murmurs appreciated lungs- ctabl, no wheezing, rhonchi or crackles,normal resp effort on ra neuro- AAOx3, CN grossly intact, no focal deficits Presyncope most likely multifactorial- BPPV and Hx Meniere Disease, poor oral intake and suspect, given description of exacerbating factors, orthostatic hypotension, known cerebellar mets appear to have resolved on imaging and are not likely contributing per oncology -ua and CXR neg -mild wbc elevation with dexamethasone, no fever, no symptoms reported -CT head and MRI brain no longer identify previous brain mets, no acute infarct or mass effect -+ rupesh shaver -improved oral intake this admission -dc with meclizine Headache most likely 2/2 brain mets and poor oral intake -CT head and MRI as above -cont dexamethasone -oncology following- as d/w Dr Alegria cont dexamthasone this and have pt call office friday for fu and further instruciton, pt has home supply Small Cell Lung Ca with previously identified Brain Mets -care as per oncology -last chemo 07/24 Thrombocytopenia, Anemia in setting of chemotherapy and cancer as above -no active bleeding, drop in hgb this admit d/w oncology and may be related to treatment, they will cont to follow it outpt, scds for vte ppx + ambulation given risk vs benefit of lovenox vte ppx with brain met hx discharge to home in stable condition
[2018-08-01 11:28] VITALS: BP 123/78
== END 2018-08-01 12:24 | disposition home or self-care (01) ==
LOC: 3ANU 20:55 → EMEROOARM 20:55 → SUATTDRO 07-30 01:00 → 3ANU 07-30 02:30
PROVIDERS: ADMIT Pediatrics; ATTEND Internal Medicine